=== PATIENT | male | born 1955 | race Caucasian/White ===

== ENCOUNTER 2024-04-29 18:39 | Inpatient (IN) ==
--- NOTE | 2024-04-29 18:58 | Emergency Department Note ---
Impression & Plan Acute cholecystitis Admission ED Provider Note HPI: History obtained from patient. The patient is a 68-year-old gentleman who presents the emergency department with a chief complaint of lower abdominal pain and vomiting. Patient states that the symptoms of an ongoing since about 1 AM. Patient states the pain is mostly in the right lower quadrant of his abdomen. Patient does admit to history of colon cancer and states that he has had a partial bowel resection in the past. Patient states he has not had any issues since then. On arrival here to the ED the patient is hypertensive but otherwise hemodynamically stable, he appears to be in no acute distress. Patient denies any chest pain or shortness of breath. ROS: - Per HPI Differential Diagnosis: Small bowel obstruction, viral gastroenteritis, diverticulitis, acute appendicitis, kidney stone, acute cholecystitis, amongst other potential pathologies. *Outpatient medications and allergy history reviewed. 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 Lab work shows a mild leukocytosis of 12.96, hemoglobin is normal, platelet count is normal, CMP shows a mild elevation in the patient's bilirubin level at 1.5, AST and ALT are normal, alk phos is mildly elevated at 121. Lipase is normal. Troponin is negative x 1. EKG per my interpretation does not show any evidence of any acute ischemic changes. CT imaging of the abdomen pelvis shows evidence of severe acute cholecystitis. Blood cultures were ordered and the patient was started on IV Zosyn. I discussed these lab work and imaging findings with on-call general surgery, Dr. Díaz, via tiger text. He requested that the patient be admitted to the medicine service, have an MRCP obtained, and to the plan at this time would be for the daytime general surgery team to evaluate the patient for further management and potential surgical intervention. At this point I discussed the patient's presentation with the on-call hospitalist, Dr. Hitchcock, and the patient was placed for admission in stable condition for further care. Patient was in agreement to this plan. Consultants/Discussions held with other healthcare providers: -General Surgery, Dr. Díaz -Hospitalist, Dr. Hitchcock Disposition discussion held by myself with: -Patient Diagnosis: 1. Acute cholecystitis 2. Leukocytosis, acute 3. Elevated bilirubin, acute Disposition: Admission Jatinder Borges DO Emergency Medicine Past Med/Surg History Problem List (Updated 04/30/24 @ 00:04 by Jatinder Borges DO) Acute cholecystitis (Acute) Social History Smoking Status: Never smoker Preferred Language: Croatian Feels Safe at Home: Yes Allergies Allergies Allergy/AdvReac Type Severity Reaction Status Date / Time No Known Allergies Allergy Unverified 04/29/24 22:38 Home Meds Home Medications Medication Instructions Recorded Confirmed No Known Home Medications 04/29/24 04/29/24 Results & Data (ED) Vital Signs Vital Signs - 24 hr 04/29/24 18:50 04/29/24 19:07 04/29/24 19:07 Temperature 36.8 C Temperature Source Temporal Artery Scan Pulse Rate 85 105 H Pulse Rate [Apical] 96 H Respiratory Rate 19 20 20 Respiratory Effort / Characteristics Non-Labored Spontaneous Non-Labored Spontaneous Respiratory Depth Normal Normal Respiratory Pattern Regular Blood Pressure 199/98 H Blood Pressure [Right Arm] 190/104 H Blood Pressure Mean 131 Blood Pressure Mean [Right Arm] 132 Pulse Oximetry 94 96 96 Oxygen Delivery Method Room Air Room Air Room Air Sepsis Recent Fever Within 48 Hours No Sepsis New/Unexplained Change in Mental Status N/A Sepsis Action Taken by Nursing No Action Required 04/29/24 19:07 04/29/24 21:00 04/29/24 23:00 Temperature Temperature Source Pulse Rate 95 H Pulse Rate [Apical] 107 H 110 H Respiratory Rate 20 20 Respiratory Effort / Characteristics Non-Labored Spontaneous Non-Labored Spontaneous Respiratory Depth Normal Normal Respiratory Pattern Regular Blood Pressure Blood Pressure [Right Arm] 170/92 H 163/95 H Blood Pressure Mean Blood Pressure Mean [Right Arm] 118 117 Pulse Oximetry 90 95 Oxygen Delivery Method Room Air Room Air Sepsis Recent Fever Within 48 Hours Sepsis New/Unexplained Change in Mental Status Sepsis Action Taken by Nursing 04/29/24 23:16 Temperature Temperature Source Pulse Rate 107 H Pulse Rate [Apical] Respiratory Rate Respiratory Effort / Characteristics Respiratory Depth Respiratory Pattern Blood Pressure Blood Pressure [Right Arm] Blood Pressure Mean Blood Pressure Mean [Right Arm] Pulse Oximetry Oxygen Delivery Method Sepsis Recent Fever Within 48 Hours Sepsis New/Unexplained Change in Mental Status Sepsis Action Taken by Nursing Laboratory Data 04/29/24 19:00 04/29/24 19:00 Lab Results 04/29/24 04/29/24 Range/Units 19:00 20:19 WBC 12.96 H (4.8-10.8) K/ul RBC 5.14 (4.70-6.10) M/uL Hgb 16.7 (14.0-18.0) g/dl Hct 46.8 (42.0-52.0) % MCV 91.1 (80.0-100.0) fL MCH 32.5 (25.0-34.0) pg MCHC 35.7 (32.0-36.0) g/dL RDW Std Deviation 42.9 (36.4-46.3) fL RDW Coeff of Ham 12.8 (11.5-14.5) % Plt Count 180 (130-400) K/uL MPV 9.3 L (9.4-12.4) fL Immature Gran % (Auto) 0.4 % Neut % (Auto) 86.5 % Lymph % (Auto) 5.4 % [place] % (Auto) 7.4 % Eos % (Auto) 0.1 % Baso % (Auto) 0.2 % Neut # (Auto) 11.21 H (1.40-6.50) K/uL Lymph # (Auto) 0.70 L (1.20-3.40) K/uL [place] # (Auto) 0.96 H (0.11-0.59) K/uL Eos # (Auto) 0.01 (0.00-0.50) K/uL Baso # (Auto) 0.03 (0.00-0.20) K/uL Immature Gran # (Auto) 0.05 (0.01-0.20) K/uL Sodium 136 (136-145) mmol/L Potassium 3.8 (3.5-5.1) mmol/L Chloride 95 L (98-107) mmol/L Carbon Dioxide 30 (21-32) mmol/L Anion Gap 11 (3-11) BUN 14 (6-23) mg/dl Creatinine 0.69 (0.6-1.4) mg/dl Est Cr Clr Drug Dosing 113.9 ml/min eGFR 100.80 BUN/Creatinine Ratio 20.3 H (10-20) Glucose 129 H (70-99(Fasting)) mg/dl Calcium 9.3 (8.6-10.3) mg/dl Total Bilirubin 1.5 H (0.2-1.0) mg/dl AST 23 (13-39) U/L ALT 27 (7-52) U/L Alkaline Phosphatase 121 H (34-104) U/L Troponin I High Sens 9.1 (0-20) pg/ml Total Protein 7.5 (6.0-8.3) gm/dl Albumin 4.6 (3.4-5.0) gm/dl Globulin 2.9 (2.5-4.0) gm/dl Albumin/Globulin Ratio 1.6 (0.9-2) Lipase 23 (11-82) U/L Urine Color Yellow Urine Appearance Clear (Clear) Urine pH 7.0 (4.5-7.5) Ur Specific [place] 1.030 (1.000-1.030) Urine Protein 1+ H (Negative) Urine Glucose (UA) Negative (Negative) Urine Ketones Negative (Negative) Urine Blood Negative (Negative) Urine Nitrite Negative (Negative) Urine Bilirubin Negative (Negative) Urine Urobilinogen Negative (Negative) Ur Leukocyte Esterase Negative (Negative) Urine WBC (Auto) 0-5 (0-5) /hpf Urine RBC (Auto) 0-2 (0-2) /hpf U Hyaline Cast (Auto) 0-2 (0-2) /lpf U Epithel Cells (Auto) 0-2 (0-2) /hpf Urine Bacteria (Auto) None Seen (None Seen) Administered Medications Discontinued Medications Sodium Chloride (Nss) 1,000 mls @ 999 mls/hr IV .Q1H1M ONE Stop: 04/29/24 19:57 Last Infusion: 04/29/24 20:31 Dose: Infused Documented By: Admin: 04/29/24 19:02 Dose: 999 mls/hr Documented By: BRANDIE Piperacillin Sod/Tazobactam Sod (Zosyn) 4.5 gm in 100 mls @ 200 mls/hr IV NOW ONE; Protocol Stop: 04/29/24 22:30 Last Infusion: 04/29/24 23:04 Dose: Infused Documented By: Admin: 04/29/24 22:32 Dose: 200 mls/hr Documented By: STEVEN Pantoprazole Sodium (Protonix) 40 mg in 10 mls @ 5 mls/min IV NOW ONE Stop: 04/29/24 23:10 Last Admin: 04/29/24 23:33 Dose: 5 mls/min Documented By: BRANDIE Ioversol (Optiray 320 100ml) 93 ml IV ONCE ONE Stop: 04/29/24 19:52 Last Admin: 04/29/24 19:51 Dose: 93 ml Documented By: DINORAH Morphine Sulfate (Morphine Sulfate 4 Mg/Ml 1 Ml Carp\Vial) 4 mg IV NOW STA Stop: 04/29/24 18:57 Last Admin: 04/29/24 19:03 Dose: 4 mg Documented By: BRANDIE Morphine Sulfate (Morphine Sulfate 4 Mg/Ml 1 Ml Carp\Vial) 4 mg IV NOW STA Stop: 04/29/24 21:01 Last Admin: 04/29/24 21:05 Dose: 4 mg Documented By: BRANDIE Morphine Sulfate (Morphine Sulfate 4 Mg/Ml 1 Ml Carp\Vial) 4 mg IV NOW STA Stop: 04/29/24 22:46 Last Admin: 04/29/24 22:49 Dose: 4 mg Documented By: STEVEN Ondansetron HCl (Ondansetron Inj 2 Mg/Ml 2 Ml Vial) 4 mg IV NOW STA Stop: 04/29/24 18:57 Last Admin: 04/29/24 19:02 Dose: 4 mg Documented By: BRANDIE Imaging Data Radiologist's Impression: Abdomen/Pelvis CT 04/29/24 18:56 CR Exam(s): CT ABDOMEN + PELVIS With Contrast IV Amt: 93ml optiray 320 EXAM: CT Abdomen and Pelvis With Intravenous Contrast CLINICAL HISTORY: Reason for exam: lower abd pain. TECHNIQUE: Axial computed tomography images of the abdomen and pelvis with intravenous contrast. CTDI is 25.22 mGy and DLP is 1192.92 mGy-cm. Automated exposure control was utilized for the study. A dose lowering technique was utilized adhering to the principles of ALARA. CONTRAST: Patient received 93ml optiray 320 of IV contrast COMPARISON: None. FINDINGS: Lung bases: Clear. Liver: Fatty. Gallbladder and bile ducts: Severe distended gallbladder, large, 3.5 cm stone in the gallbladder neck, moderate wall thickening/halo, nonspecific, probable acute cholecystitis. No ductal dilation. Pancreas: No ductal dilation, or acute pancreatitis. Spleen: Unremarkable. Adrenals: Unremarkable. Kidneys and ureters: Mild perinephric edema bilaterally. No pyelonephritis or hydronephrosis. Stomach and bowel: Moderate to severe fecal loading of a capacious right colon. No diverticulosis or diverticulitis. No obstruction. Appendix: No acute appendicitis. Intraperitoneal space: No free air or fluid. Bones/joints: Severe degenerative disc disease in the lumbar spine with multilevel vacuum disc and multilevel bilateral foraminal stenosis. No acute fracture. Soft tissues: Unremarkable. Vasculature: No aortic aneurysm. Lymph nodes: No enlarged lymph nodes. Bladder: No stones. Reproductive: Unremarkable as visualized. IMPRESSION: 1. Suspect severe, acute cholecystitis with cholelithiasis. 2. No ductal dilatation. Communications: Verify Receipt Electronically signed by: Winnie Valdovinos M.D. 04/29/24 21:58 PM Discharge Plan Visit Data Chief Complaint: Abdominal Pain Stated Complaint: ?STOMACH POISIONING,ABD PAIN,VOMITING ED Provider: Jatinder Borges Discharge Problem: Acute cholecystitis Forms Stand Alone Forms: [facility] [place] Prescriptions Prescriptions: No Action No Known Home Medications Referrals Referrals: PCP,NO [Primary Care Provider] -
[2024-04-29] MEDS: ONDANSETRON INJ 2 MG/ML 2 ML VIAL IV STA (19:02)
[2024-04-29] MEDS: SODIUM CHLORIDE 0.9% 1,000 ML IV ONE (19:02)
[2024-04-29] MEDS: MoRPHine SULFATE 4 MG/ML 1 ML CARP\\VIAL IV STA ×3 (19:03→22:49)
[2024-04-29 19:16] LABS: Basophils # (auto) 0.03 K/uL (0.00-0.20); Basophils % (auto) 0.2 %; Eosinophils # (auto) 0.01 K/uL (0.00-0.50); Eosinophils % (auto) 0.1 %; Hematocrit (blood only) 46.8 % (42.0-52.0); Hemoglobin 16.7 g/dl (14.0-18.0); Immature Granulocytes # (auto) 0.05 K/uL (0.01-0.20); Immature Granulocytes % (auto) 0.4 %; Lymphocytes % (auto) 5.4 %; Mean Corpuscular Hemoglobin 32.5 pg (25.0-34.0); Mean Corpuscular Hgb Conc 35.7 g/dL (32.0-36.0); Mean Corpuscular Volume 91.1 fL (80.0-100.0); Mean Platelet Volume 9.3 fL (9.4-12.4); Monocytes # (auto) 0.96 K/uL (0.11-0.59); Monocytes % (auto) 7.4 %; Neutrophils # (auto) 11.21 K/uL (1.40-6.50); Neutrophils % (auto) 86.5 %; Platelet Count 180 K/uL (130-400); RDW Coefficient of Variation 12.8 % (11.5-14.5); RDW Standard Deviation 42.9 fL (36.4-46.3); Red Blood Count 5.14 M/uL (4.70-6.10); White Blood Count 12.96 K/ul (4.8-10.8)
[2024-04-29 19:33] LABS: Albumin Globulin Ratio 1.6 (0.9-2); Albumin Level 4.6 gm/dl (3.4-5.0); BUN Creatinine Ratio 20.3 (10-20); Bilirubin,Total 1.5 mg/dl (0.2-1.0); Calcium 9.3 mg/dl (8.6-10.3); Creatinine Clr Calc Pharmacy 113.9 ml/min; Globulin 2.9 gm/dl (2.5-4.0); Potassium 3.8 mmol/L (3.5-5.1); Total Protein 7.5 gm/dl (6.0-8.3)
[2024-04-29 19:40] LABS: Troponin I High Sensitivity 9.1 pg/ml (0-20)
[2024-04-29] MEDS: OPTIRAY 320 100ml IV ONE (19:51)
[2024-04-29 20:41] LABS: Appearance Urine Clear (Clear); Bacteria Urine Automated None Seen (None Seen); Bilirubin Urine Negative (Negative); Blood Urine Negative (Negative); Cast Urine Automated 0-2 /lpf (0-2); Color Urine Yellow; Epithelial Cell Urine Auto 0-2 /hpf (0-2); Glucose Urine UA Negative (Negative); Ketones Urine Negative (Negative); Leukocyte Esterase Urine Negative (Negative); Nitrite Urine Negative (Negative); Protein Urine 1+ (Negative); RBC Urine Automated 0-2 /hpf (0-2); Urobilinogen Urine Negative (Negative); WBC Urine Automated 0-5 /hpf (0-5)
--- NOTE | 2024-04-29 21:59 | CT Scan Report ---
Exam(s): CT ABDOMEN + PELVIS With Contrast IV Amt: 93ml optiray 320 EXAM: CT Abdomen and Pelvis With Intravenous Contrast CLINICAL HISTORY: Reason for exam: lower abd pain. TECHNIQUE: Axial computed tomography images of the abdomen and pelvis with intravenous contrast. CTDI is 25.22 mGy and DLP is 1192.92 mGy-cm. Automated exposure control was utilized for the study. A dose lowering technique was utilized adhering to the principles of ALARA. CONTRAST: Patient received 93ml optiray 320 of IV contrast COMPARISON: None. FINDINGS: Lung bases: Clear. Liver: Fatty. Gallbladder and bile ducts: Severe distended gallbladder, large, 3.5 cm stone in the gallbladder neck, moderate wall thickening/halo, nonspecific, probable acute cholecystitis. No ductal dilation. Pancreas: No ductal dilation, or acute pancreatitis. Spleen: Unremarkable. Adrenals: Unremarkable. Kidneys and ureters: Mild perinephric edema bilaterally. No pyelonephritis or hydronephrosis. Stomach and bowel: Moderate to severe fecal loading of a capacious right colon. No diverticulosis or diverticulitis. No obstruction. Appendix: No acute appendicitis. Intraperitoneal space: No free air or fluid. Bones/joints: Severe degenerative disc disease in the lumbar spine with multilevel vacuum disc and multilevel bilateral foraminal stenosis. No acute fracture. Soft tissues: Unremarkable. Vasculature: No aortic aneurysm. Lymph nodes: No enlarged lymph nodes. Bladder: No stones. Reproductive: Unremarkable as visualized. IMPRESSION: 1. Suspect severe, acute cholecystitis with cholelithiasis. 2. No ductal dilatation. Communications: Verify Receipt Electronically signed by: Winnie Valdovinos M.D. 04/29/24 21:58 PM
[2024-04-29] MEDS: PIPERACILLIN/TAZOBACTAM 4.5 GM/100 ML BAG IV ONE (22:32)
--- NOTE | 2024-04-29 23:19 | History & Physical Report ---
Date of Service April 29, 2024 Assessment & Plan (1) Acute cholecystitis: (2) Cholelithiasis NOS: Plan Acute cholecystitis with cholelithiasis- Patient with 24 hours of severe symptoms of abdominal pain, nausea and vomiting CT of abdomen pelvis suspect severe acute cholecystitis There is a 3.5 cm stone in the gallbladder neck Total bilirubin 1.5 with normal transaminases Neutrophilic leukocytosis, with WBC 12.96 Surgical consult request medicine admit, MRCP, and medical clearance From the ED the patient received the following: Zofran 4 mg IV, NSS 1 L bolus, Zosyn 4.5 g IV x 1, Morphine sulfate 4 mg IV x 3 NPO Order MRCP Zofran 4 mg IV every 6 hours as needed Acetaminophen 1 g IV every 8 hours as needed for mild pain or fever Dilaudid 0.25 mg IV every 3 hours as needed for moderate pain Dilaudid 0.5 mg IV every 3 hours as needed for severe pain Pantoprazole 40 mg IV now and daily Zosyn 4.5 g IV every 8 hours LR at 80 mL/h x 1 L Hypertension- Admit to monitored bed Patient reports no history, but also does not see doctors on a regular basis Lopressor 2.5 mg IV every 4 hours as needed for systolic blood pressure greater than 160 Normal sinus rhythm at 96, with isolated PACs, left anterior fascicular block, no acute ST-T changes History of Present Illness Chief Complaint: The patient presents to the emergency department with the acute onset of severe abdominal pain, nausea and vomiting over the past 24 hours. He denies any recent travels or sick exposures. He denies any questionable food intakes. Primary Care Provider: NO PCP The patient is a 68-year-old male with a past medical history including colon cancer status post resection in [place] 2 years ago. He presents to the emergency department with the acute development and worsening of severe abdominal pain, nausea and vomiting over the past [address] scan of the abdomen and pelvis in the ED was positive for severe acute cholecystitis, with a 3.5 cm stone in the gallbladder neck. There was also moderate to severe fecal loading. Allergies Allergy/AdvReac Type Severity Reaction Status Date / Time No Known Allergies Allergy Unverified 04/29/24 22:38 Home Medications Medication Instructions Recorded Confirmed Type No Known Home Medications 04/29/24 04/29/24 History Past Med/Surg History Problem List (Updated 04/30/24 @ 00:50 by Jamri Hitchcock MD) Cholelithiasis NOS Acute cholecystitis (Acute) Medical History (Updated 04/30/24 @ 00:50 by Jamir Hitchcock MD) Cancer of colon with rectum Social History Smoking Status: Never smoker Preferred Language: Maori Feels Safe at Home: Yes Review of Systems Review of Systems: The patient denies chest pain, palpitations, shortness of breath, dyspnea on exertion, cough, lower extremity swelling, sore throat, fevers, chills, sweats, blood in urine or stool, dysuria, urinary frequency or urgency, lightheadedness, dizziness, headache, memory loss, loss of consciousness, rash, abnormal bruising or bleeding, imbalance, focal or generalized weakness, numbness or tingling in arms or legs, generalized arthralgias or myalgias, back or neck pain, or night sweats. The review of systems is otherwise negative other than for that already noted above, and at least 10 systems have been reviewed. Physical Exam Physical Exam: The patient is awake, alert and oriented 3, well developed and well nourished, normocephalic and atraumatic, lying in bed and in no acute distress. HEENT--PERRL, EOMI, mucous membranes and oropharynx mildly dry. Neck--supple. No JVD. No bruits. Thyroid normal, trachea midline, no adenopathy. Heart--normal S1 and S2. No murmurs, rubs or gallops. Lungs--clear bilaterally, no respiratory distress, no accessory muscle use. Abdomen--normal bowel sounds and soft. Nontender after administration of IV morphine. Nondistended Extremities--no cyanosis or clubbing. No edema. Dermatologic--normal skin turgor, normal color, no abnormal lymph nodes, no rash. Neurologic--cranial nerves II through XII grossly intact. Rheumatologic--normal range of motion. Psychiatric--normal affect. Results & Data Results & Data Vital Signs (Past 12 Hours) Vital Signs Temp Pulse Pulse Resp BP BP Pulse Ox 04/29/24 23:00 110 H 20 163/95 H 95 04/29/24 21:00 107 H 20 170/92 H 90 04/29/24 19:07 95 H 04/29/24 19:07 105 H 20 96 04/29/24 19:07 96 H 20 190/104 H 96 04/29/24 18:50 36.8 C 85 19 199/98 H 94 O2 Del Method 04/29/24 23:00 Room Air 04/29/24 21:00 Room Air 04/29/24 19:07 04/29/24 19:07 Room Air 04/29/24 19:07 Room Air 04/29/24 18:50 Room Air Laboratory Results Laboratory Results WBC 12.96 K/ul (4.8-10.8) H 04/29/24 19:00 RBC 5.14 M/uL (4.70-6.10) 04/29/24 19:00 Hgb 16.7 g/dl (14.0-18.0) 04/29/24 19:00 Hct 46.8 % (42.0-52.0) 04/29/24 19:00 MCV 91.1 fL (80.0-100.0) 04/29/24 19:00 MCH 32.5 pg (25.0-34.0) 04/29/24 19:00 MCHC 35.7 g/dL (32.0-36.0) 04/29/24 19:00 RDW Std Deviation 42.9 fL (36.4-46.3) 04/29/24 19:00 RDW Coeff of Ham 12.8 % (11.5-14.5) 04/29/24 19:00 Plt Count 180 K/uL (130-400) 04/29/24 19:00 MPV 9.3 fL (9.4-12.4) L 04/29/24 19:00 Immature Gran % (Auto) 0.4 % 04/29/24 19:00 Neut % (Auto) 86.5 % 04/29/24 19:00 Lymph % (Auto) 5.4 % 04/29/24 19:00 [place] % (Auto) 7.4 % 04/29/24 19:00 Eos % (Auto) 0.1 % 04/29/24 19:00 Baso % (Auto) 0.2 % 04/29/24 19:00 Neut # (Auto) 11.21 K/uL (1.40-6.50) H 04/29/24 19:00 Lymph # (Auto) 0.70 K/uL (1.20-3.40) L 04/29/24 19:00 [place] # (Auto) 0.96 K/uL (0.11-0.59) H 04/29/24 19:00 Eos # (Auto) 0.01 K/uL (0.00-0.50) 04/29/24 19:00 Baso # (Auto) 0.03 K/uL (0.00-0.20) 04/29/24 19:00 Immature Gran # (Auto) 0.05 K/uL (0.01-0.20) 04/29/24 19:00 Sodium 136 mmol/L (136-145) 04/29/24 19:00 Potassium 3.8 mmol/L (3.5-5.1) 04/29/24 19:00 Chloride 95 mmol/L (98-107) L 04/29/24 19:00 Carbon Dioxide 30 mmol/L (21-32) 04/29/24 19:00 Anion Gap 11 (3-11) 04/29/24 19:00 BUN 14 mg/dl (6-23) 04/29/24 19:00 Creatinine 0.69 mg/dl (0.6-1.4) 04/29/24 19:00 Est Cr Clr Drug Dosing 113.9 ml/min 04/29/24 19:00 eGFR 100.80 04/29/24 19:00 BUN/Creatinine Ratio 20.3 (10-20) H 04/29/24 19:00 Glucose 129 mg/dl (70-99(Fasting)) H 04/29/24 19:00 Calcium 9.3 mg/dl (8.6-10.3) 04/29/24 19:00 Total Bilirubin 1.5 mg/dl (0.2-1.0) H 04/29/24 19:00 AST 23 U/L (13-39) 04/29/24 19:00 ALT 27 U/L (7-52) 04/29/24 19:00 Alkaline Phosphatase 121 U/L (34-104) H 04/29/24 19:00 Troponin I High Sens 9.1 pg/ml (0-20) 04/29/24 19:00 Total Protein 7.5 gm/dl (6.0-8.3) 04/29/24 19:00 Albumin 4.6 gm/dl (3.4-5.0) 04/29/24 19:00 Globulin 2.9 gm/dl (2.5-4.0) 04/29/24 19:00 Albumin/Globulin Ratio 1.6 (0.9-2) 04/29/24 19:00 Lipase 23 U/L (11-82) 04/29/24 19:00 Urine Color Yellow 04/29/24 20:19 Urine Appearance Clear (Clear) 04/29/24 20:19 Urine pH 7.0 (4.5-7.5) 04/29/24 20:19 Ur Specific [place] 1.030 (1.000-1.030) 04/29/24 20:19 Urine Protein 1+ (Negative) H 04/29/24 20:19 Urine Glucose (UA) Negative (Negative) 04/29/24 20:19 Urine Ketones Negative (Negative) 04/29/24 20:19 Urine Blood Negative (Negative) 04/29/24 20:19 Urine Nitrite Negative (Negative) 04/29/24 20:19 Urine Bilirubin Negative (Negative) 04/29/24 20:19 Urine Urobilinogen Negative (Negative) 04/29/24 20:19 Ur Leukocyte Esterase Negative (Negative) 04/29/24 20:19 Urine WBC (Auto) 0-5 /hpf (0-5) 04/29/24 20:19 Urine RBC (Auto) 0-2 /hpf (0-2) 04/29/24 20:19 U Hyaline Cast (Auto) 0-2 /lpf (0-2) 04/29/24 20:19 U Epithel Cells (Auto) 0-2 /hpf (0-2) 04/29/24 20:19 Urine Bacteria (Auto) None Seen (None Seen) 04/29/24 20:19 Impressions Abdomen/Pelvis CT 04/29/24 18:56 CR Exam(s): CT ABDOMEN + PELVIS With Contrast IV Amt: 93ml optiray 320 EXAM: CT Abdomen and Pelvis With Intravenous Contrast CLINICAL HISTORY: Reason for exam: lower abd pain. TECHNIQUE: Axial computed tomography images of the abdomen and pelvis with intravenous contrast. CTDI is 25.22 mGy and DLP is 1192.92 mGy-cm. Automated exposure control was utilized for the study. A dose lowering technique was utilized adhering to the principles of ALARA. CONTRAST: Patient received 93ml optiray 320 of IV contrast COMPARISON: None. FINDINGS: Lung bases: Clear. Liver: Fatty. Gallbladder and bile ducts: Severe distended gallbladder, large, 3.5 cm stone in the gallbladder neck, moderate wall thickening/halo, nonspecific, probable acute cholecystitis. No ductal dilation. Pancreas: No ductal dilation, or acute pancreatitis. Spleen: Unremarkable. Adrenals: Unremarkable. Kidneys and ureters: Mild perinephric edema bilaterally. No pyelonephritis or hydronephrosis. Stomach and bowel: Moderate to severe fecal loading of a capacious right colon. No diverticulosis or diverticulitis. No obstruction. Appendix: No acute appendicitis. Intraperitoneal space: No free air or fluid. Bones/joints: Severe degenerative disc disease in the lumbar spine with multilevel vacuum disc and multilevel bilateral foraminal stenosis. No acute fracture. Soft tissues: Unremarkable. Vasculature: No aortic aneurysm. Lymph nodes: No enlarged lymph nodes. Bladder: No stones. Reproductive: Unremarkable as visualized. IMPRESSION: 1. Suspect severe, acute cholecystitis with cholelithiasis. 2. No ductal dilatation. Communications: Verify Receipt Electronically signed by: iWnnie Valdovinos M.D. 04/29/24 21:58 PM Code Status & VTE Plan Code Status Full code VTE Prophylaxis Plan VTE Prophylaxis will be ordered: Yes PG Care Time/CCT Total # of Minutes Spent Total Time Spent with Patient: Total time spent is greater than 50% in coordination of care (as documented) at patient's floor/unit and/or counseling patient: Coding Level of Care Code 70991 INT INP/OBS CARE 3/75MIN Diagnoses Acute cholecystitis K81.0 Cholelithiasis NOS K80.20
[2024-04-29] MEDS: PANTOprazole 40 MG/10 ML SYR IV ONE (23:33)
[2024-04-30] MEDS: HYDROmorphone INJ 0.5 MG/0.5 ML SYR IV PRN (00:09)
[2024-04-30] MEDS ORDERED: METOPROLOL TARTRATE 1 MG/ML VIAL IV PRN (00:55)
[2024-04-30] MEDS ORDERED: ONDANSETRON INJ 2 MG/ML 2 ML VIAL IV PRN ×2 (00:56→14:03)
[2024-04-30] MEDS: LACTATED RINGER'S 1,000 ML IV SCH ×2 (01:15→13:32)
--- NOTE | 2024-04-30 02:04 | Magnetic Resonance Report ---
EXAM: MR MRCP CLINICAL HISTORY: abdomen pain since this morning. vomiting. CT abd/pelvis 04/29/24. no other MRCP done here. images 1030 TECHNIQUE: Multiplanar multisequence magnetic resonance imaging of the abdomen was performed without intravenous contrast with MRCP protocol. COMPARISON: None. FINDINGS: Liver: Normal size and morphology. Few tiny T2 hyperintense lesions in both lobes of liver, likely benign hepatic cysts. Gallbladder: 32 mm calculus near the neck of gallbladder with distention of the lumen and significant pericholecystic inflammatory changes with minimal fluid, representing acute calculus cholecystitis Bile Ducts: The gallbladder calculus is slightly compressing the proximal common bile duct resulting in the prominence of upstream biliary system. No evidence of choledocholithiasis. Pancreas: Normal size and contour. Homogeneous signal intensity on T2-weighted images. No masses or cystic lesions. Pancreatic Duct: Pancreatic duct is normal in caliber. No evidence of ductal dilatation or filling defects. Spleen: Normal size and appearance. Homogeneous signal intensity. Kidneys: Normal size, shape, and position of both kidneys. Significant perinephric fat stranding, nonspecific/inflammatory. Adrenal Glands: Normal size and morphology bilaterally. No adrenal masses. Surrounding Structures: No evidence of free fluid or abnormal fluid collections in the abdomen. Normal appearance of the visualized bowel loops. IMPRESSION: 1. Acute calculus cholecystitis. 2. 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 Electronically signed by Lacy Holguin 04-30-2024 02:02 AM
[2024-04-30] MEDS: PIPERACILLIN/TAZOBACTAM 4.5 GM/100 ML BAG IV SCH (04:00)
[2024-04-30] MEDS: ACETAMINOPHEN 1,000 MG/100 ML VIAL IV PRN (04:08)
[2024-04-30 08:04] LABS: Basophils # (auto) 0.04 K/uL (0.00-0.20); Basophils % (auto) 0.3 %; Eosinophils # (auto) 0.01 K/uL (0.00-0.50); Eosinophils % (auto) 0.1 %; Hematocrit (blood only) 44.4 % (42.0-52.0); Hemoglobin 15.2 g/dl (14.0-18.0); Immature Granulocytes # (auto) 0.06 K/uL (0.01-0.20); Immature Granulocytes % (auto) 0.5 %; Lymphocytes # (auto) 1.09 K/uL (1.20-3.40); Lymphocytes % (auto) 8.5 %; Mean Corpuscular Hemoglobin 31.5 pg (25.0-34.0); Mean Corpuscular Hgb Conc 34.2 g/dL (32.0-36.0); Mean Corpuscular Volume 92.1 fL (80.0-100.0); Mean Platelet Volume 9.5 fL (9.4-12.4); Monocytes # (auto) 0.96 K/uL (0.11-0.59); Monocytes % (auto) 7.5 %; Neutrophils % (auto) 83.1 %; Platelet Count 155 K/uL (130-400); RDW Coefficient of Variation 13.2 % (11.5-14.5); RDW Standard Deviation 44.9 fL (36.4-46.3); Red Blood Count 4.82 M/uL (4.70-6.10); White Blood Count 12.76 K/ul (4.8-10.8)
[2024-04-30 08:30] LABS: Albumin Globulin Ratio 1.3 (0.9-2); Albumin Level 3.8 gm/dl (3.4-5.0); BUN Creatinine Ratio 21.6 (10-20); Bilirubin,Total 1.6 mg/dl (0.2-1.0); Calcium 8.7 mg/dl (8.6-10.3); Creatinine Clr Calc Pharmacy 113.2 ml/min; Total Protein 6.8 gm/dl (6.0-8.3)
[2024-04-30] MEDS: PANTOprazole 40 MG/10 ML SYR IV SCH (08:51)
[2024-04-30] MEDS: ACETAMINOPHEN 1,000 MG/100 ML VIAL IV STA ×2 (11:19→16:21)
--- NOTE | 2024-04-30 12:37 | Surgery Consultation ---
Date of Consultation April 30, 2024 Assessment & Plan (1) Cholelithiasis NOS: (2) Acute cholecystitis: MRCP suggesting some compression of the common bile duct by the gallbladder/cystic duct stone with proximal dilation likely the etiology of his elevated bilirubin. No evidence of choledocholithiasis. We discussed laparoscopic cholecystectomy and associated risks. We discussed potential bleeding, infection, injury to other organs, bile duct injury or leak, DVT, PE, [place], CVA etc. Following our discussion I answered all of his question. I also reached out to medicine and they had no issue with taking him to the operating room today. We will proceed today with laparoscopic cholecystectomy. He and his agree with the plan (3) Elevated LFTs: History of Present Illness Attending Physician: Jovani Patel DO History of Present Illness Is here today with acute cholecystitis. He began having severe upper abdominal pain and nausea yesterday afternoon. Allergies Allergy/AdvReac Type Severity Reaction Status Date / Time No Known Allergies Allergy Unverified 04/29/24 22:38 Home Medications Medication Instructions Recorded Confirmed Type No Known Home Medications 04/29/24 04/29/24 History Patient History Medical History (Updated 04/30/24 @ 12:36 by Alcides Solorzano DO) Cancer of colon with rectum Social History Smoking Status: Former smoker Tobacco Type: Cigarettes Smoking End Date: 1994; Second Hand Exposure: No; Tobacco Cessation Education Requested by Patient: No Hx Alcohol Use: Yes Alcohol type: hard liquor Hx Substance Use: No Preferred Language: Ethiopian Communication Ability: Effective Bladder Changer Required: No Beliefs That Will Affect Care: None Current Living Situation: Significant Other Other Information That Helps Us Care for You: No Feels Safe at Home: Yes Safety Concerns: Feels Safe At This Time Assistive Devices: Denture - Upper and Denture - Lower Review of Systems Review of Systems: All systems reviewed & are unremarkable except as noted in HPI & below Physical Exam Constitutional: WD/WN, vitals as above no acute distress and not ill appearing Eyes: PERRL, conjunctivae normal, anicteric sclerae EOM intact bilaterally ENMT: external ear and nose normal, oropharynx normal Ears: no hearing impairment Neck: trachea midline, no thyromegaly Respiratory: normal respiratory effort; no respiratory distress and does not use accessory muscles Cardiovascular: Sinus tachycardia. Gastrointestinal (Abdomen): Soft. Positive epigastric and right upper quadrant tenderness. Positive guarding. Skin: no rashes, warm and dry Psychiatric: Orientation: alert, oriented x 3 and cooperative Results & Data Vital Signs (Past 12 Hours) Vital Signs Temp Pulse Pulse Resp BP Pulse Ox Pulse Ox 04/30/24 11:57 106 H 04/30/24 11:10 126 H 04/30/24 10:55 38 C H 111 H 15 169/89 H 93 04/30/24 07:20 36.9 C 92 H 19 163/82 H 96 04/30/24 07:00 113 H 04/30/24 04:11 37.1 C 101 H 18 167/84 H 94 04/30/24 01:09 37.3 C 115 H 18 166/96 H 97 04/30/24 00:56 97 04/30/24 00:28 04/30/24 00:27 109 H 20 156/96 H 94 O2 Del Method O2 Del Method O2 Flow Rate 04/30/24 11:57 04/30/24 11:10 04/30/24 10:55 Room Air 04/30/24 07:20 Room Air 04/30/24 07:00 04/30/24 04:11 Room Air 04/30/24 01:09 Room Air 04/30/24 00:56 Room Air 04/30/24 00:28 Room Air 04/30/24 00:27 Nasal Cannula 2 PG Care Time/CCT Total # of Minutes Spent Total Time Spent with Patient: Total time spent is greater than 50% in coordination of care (as documented) at patient's floor/unit and/or counseling patient: Coding Level of Care Code 48042 INT INP/OBS CARE 2/55MIN Diagnoses Calculus of gallbladder with acute cholecystitis without obstruction K80.00 Cholelithiasis location: gallbladder Cholecystitis presence: with cholecystitis Cholecystitis acuity: acute Biliary obstruction: without biliary obstruction Acute cholecystitis K81.0 Elevated LFTs R79.89 (1) Cholelithiasis NOS Cholelithiasis location: gallbladder Cholecystitis presence: with cholecystitis Cholecystitis acuity: acute Biliary obstruction: without biliary obstruction Qualified Code(s): K80.00 - Calculus of gallbladder with acute cholecystitis without obstruction
[2024-04-30] MEDS ORDERED: ROCURONIUM BROMIDE 10 MG/ML 5 ML VIAL IV ONE (13:11)
[2024-04-30] MEDS ORDERED: MIDAZOLAM HCL 1 MG/ML 2ML VIAL ONE (13:11)
[2024-04-30] MEDS ORDERED: ONDANSETRON INJ 2 MG/ML 2 ML VIAL ONE (13:11)
[2024-04-30] MEDS ORDERED: PROPOFOL IV EMULSION 10 MG/ML 20 ML VIAL IV ONE (13:11)
[2024-04-30] MEDS ORDERED: fentaNYL citrate PF 100 MCG/2 ML VIAL ONE ×2 (13:11→15:10)
[2024-04-30] MEDS ORDERED: LIDOCAINE 2% 2 ML VIAL/AMP(20MG/ML) INFIL ONE (13:11)
--- NOTE | 2024-04-30 13:55 | Electrocardiogram Report ---
Test Reason : Blood Pressure : */* mmHG Vent. Rate : 96 BPM Atrial Rate : 96 BPM P-R Int : 190 ms QRS Dur : 88 ms QT Int : 364 ms P-R-T Axes : 53 -57 28 degrees QTcB Int : 459 ms Sinus rhythm with Premature atrial complexes Left anterior fascicular block Poor R wave progression, consider anterior AK vs. lead placement vs. LVH Abnormal ECG No previous ECGs available Confirmed by Deandre Fowelr ([id number]) on 04/30/2024 1:54:58 PM Referred By: NO PCP Confirmed By: Deandre Fowler
--- NOTE | 2024-04-30 14:02 | Anesthesiology Consultation ---
Date of Service April 30, 2024 Assessment & Plan Chart Review Chart Review: Acceptable Risk for Surgery and Patient NOT seen in Pre Admission Testing Consults Requested none ASA ASA2 Proposed Anesthesia Anesthesia Type: General Risk / Benefits Reviewed With: PT / POA / Parent / Guardian, Accepts Plan and Informed Consent Obtained History Surgery Operation Date: 04/30/24 11:25 Proposed Procedures p Laparoscopic Cholecystectomy - Alcides Solorzano, DO Height/Weight Height: 5 ft 8 in Weight: 106.8 kg Allergies Allergy/AdvReac Type Severity Reaction Status Date / Time No Known Allergies Allergy Unverified 04/29/24 22:38 Medications Home Medications Medication Instructions Recorded Confirmed Last Taken No Known Home Medications 04/29/24 04/29/24 Unknown Active Medications Generic Name Dose Route Start Last Admin Trade Name Freq PRN Reason Stop Dose Admin Hydromorphone HCl 0.5 mg 04/29/24 23:09 04/30/24 08:49 Hydromorphone Inj 0.5 Mg/0.5 Ml Syr IV 05/13/24 23:08 0.5 mg Q3H PRN Administration Severe Pain (Scale 7, 8, 9,10) Acetaminophen 1,000 mg in 100 mls @ 400 mls/hr 04/29/24 23:09 04/30/24 05:07 Ofirmev IV 05/02/24 23:08 Infused Q8H PRN Infusion Pain or Fever Pantoprazole Sodium 40 mg in 10 mls @ 5 mls/min 04/30/24 09:00 04/30/24 08:51 Protonix IV 05/30/24 08:59 5 mls/min DAILY IRIS Administration Piperacillin Sod/Tazobactam Sod 4.5 gm in 100 mls @ 25 mls/hr 04/30/24 04:00 04/30/24 11:22 Zosyn IV 05/10/24 03:59 25 mls/hr Q8H IRIS Administration Protocol Lactated Ringer's 1,000 mls @ 15 mls/hr 04/30/24 13:30 04/30/24 13:32 Lr IV 05/01/24 13:29 0 mls/hr .Q24H IRIS Infusion KVO NPO Date Last Intake of Fluids: 04/29/24 Time Last Intake of Fluids: 18:00 Date Last Intake of Solids: 04/28/24 Time Last Intake of Solids: 17:00 Past Medical History Medical History Cancer of colon with rectum Exercise / Class Metabolic Activity II 4-5 Yardwork/Stairs/Walk up hill Past Anesthesia History No Hx of Anesthesia Complications and No Family Hx of Anesthesia Complications History of PONV No Hx of PONV and No Hx of Motion Sickness Social History Smoking Status: Former smoker Smoking End Date: 1994 Hx Alcohol Use: Yes Alcohol type: hard liquor alcohol intake frequency: 0-2 drinks per day Hx Substance Use: No substance use type: does not use Review of Systems ROS Unobtainable: All systems reviewed & are unremarkable except as noted in HPI & below Physical Exam Vital Signs Last Vital Signs Temp 37.1 C 04/30/24 12:55 Pulse 104 H 04/30/24 12:55 Resp 20 04/30/24 12:55 BP 133/90 04/30/24 12:55 Pulse Ox 94 04/30/24 12:55 O2 Del Method Room Air 04/30/24 12:55 O2 Flow Rate 2 04/30/24 00:27 ENMT Mouth: no TMJ abnormality Thyromental Distance: > or= 3.5 Finger Breadths Mallampati Class: II Neck normal visual inspection and trachea midline; neck extension not limited Respiratory normal respiratory effort Auscultation: lungs clear to auscultation bilaterally Cardiovascular Rate/Rhythm: regular rate and regular rhythm Heart Sounds: no murmur Musculoskeletal Spine: normal cervical ROM Extremities: full ROM of extremities Neurologic moves all extremities Psychiatric Orientation: alert and oriented x 3 Testing Laboratory Results 04/30/24 07:48 04/30/24 07:48 Urine Color Yellow 04/29/24 20:19 Urine Appearance Clear (Clear) 04/29/24 20:19 Urine pH 7.0 (4.5-7.5) 04/29/24 20:19 Ur Specific [place] 1.030 (1.000-1.030) 04/29/24 20:19 Urine Protein 1+ (Negative) H 04/29/24 20:19 Urine Glucose (UA) Negative (Negative) 04/29/24 20:19 Urine Ketones Negative (Negative) 04/29/24 20:19 Urine Nitrite Negative (Negative) 04/29/24 20:19 Ur Leukocyte Esterase Negative (Negative) 04/29/24 20:19 Urine WBC (Auto) 0-5 /hpf (0-5) 04/29/24 20:19 Urine RBC (Auto) 0-2 /hpf (0-2) 04/29/24 20:19 U Hyaline Cast (Auto) 0-2 /lpf (0-2) 04/29/24 20:19 U Epithel Cells (Auto) 0-2 /hpf (0-2) 04/29/24 20:19 Urine Bacteria (Auto) None Seen (None Seen) 04/29/24 20:19 Electrocardiogram Date: 04/29/24 Findings: + NSR @ (PACs)
[2024-04-30] MEDS ORDERED: ATROPINE SULFATE 0.1 MG/ML 10ML SYR IV PRN (14:03)
[2024-04-30] MEDS ORDERED: ePHEDrine sulfate 50 MG/ML AMP IV PRN (14:03)
--- NOTE | 2024-04-30 14:29 | Hospitalist Progress Note ---
Date of Service April 30, 2024 Assessment & Plan (1) Acute cholecystitis: Plan: - Patient presented to ED with symptoms of right lower abdominal pain and vomiting - CT and MRCP show 3.2-3.5cm calculus near neck of the gallbladder with severe distention, inflammatory changes, and minimal fluid - Lab values: Leukocytosis, WBC - 12.76 BUN/Cret - 21.6 Elevated Bili - 1.6 Elevated ALP - 120 Indicative of cholestasis likely due to calculus pushing down on bile duct - Blood cultures have been ordered for sensitivities - Gen Surg has been consulted - patient will be going forward with laproscopic cholecystectomy - Continue Zosyn - Continue LR (2) Cholelithiasis NOS: Plan: - as per plan above (3) Hypertension: Plan: - Patient presented to ED with BP of 199/98 - Currently at 163/82, MAP: 109 - EKG showed no signs of ischemic changes, normal sinus rhythm at 96, with isolated PACs, left anterior fascicular block, no acute ST-T changes - Continue 2.5mg lopressor Admission and Anticipated Discharge Date Admission Date: April 29, 2024 Supervising Physician Co-Signing Physician Notes I personally examined the patient and verified all medellin points of history and exam, discussed case, and agree with decision making with Dr Jung and Garrett Burch MS2 feels lousy but overall stable. For surgery later this afternoon. Surgical input greatly appreciated. Vitals noted, in general he is awake and alert pleasant no distress. HEENT normocephalic atraumatic mucous membranes moist. Breathing unlabored no accessory muscle use good effort. Skin without rashes pallor or icterus. Neuro without focal deficits. Cholecystitis with sepsis present on admissioncontinue antibiotics and supportive care. For surgery this afternoon. DVT proph - SCDs Gregory Connor is a 68M w/ PMH of colon cancer s/p partial resection presented to the ED 04/29 for right lower quadrant abdominal pain and vomiting. His symptoms started at 1am at pain of 5 and progressed through the day to a pain of 7-8 by 6pm. Originally thought it was food poisoning from Thanksgiving meal on Tuesday. He tried acetaminophen at home with no relief and vomited every time he tried drank water (6-7 times). He endorses that his pain started in the right lower quadrant, but would spread to rest of his abdominal region if he moved or twisted. He also mentioned that the pain would occasionally be sharp and radiate down his leg and back. He says he has not ate anything since the pain first started and has had no bowel movements. He endorses having intermittent fevers yesterday. Nikolas also came in to the ED hypertensive at 199/98. He endorses never being on home BP medications and does not regularly see a doctor. He does mention that he occasionally has sharp chest pain during work that attributes to stress, but does not experience any SOB. Today, he mentions his abdominal pain is better, but still present, and he feels less nauseous today. He does not endorse any chest pain, SOB, or lightheadedness today, but does mention headaches. Review of Systems Constitutional: + headache Gastrointestinal: + abdominal pain, + bloating, + nausea, + vomiting and + constipation Physical Exam Constitutional: WD/WN, vitals as above alert and conversive Respiratory: normal respiratory effort, lungs clear to auscultation Cardiovascular: RRR, no murmur, no edema Gastrointestinal (Abdomen): Inspection/Auscultation: + abdomen distended and normal bowel sounds guarding and rigidity on mid right quadrant, tenderness of right side, no hepatospenomegaly, no Alcantar's sign Results & Data Results & Data Vital Signs (Past 12 Hours) Vital Signs Temp Pulse Pulse Resp BP Pulse Ox Pulse Ox 04/30/24 07:20 36.9 C 92 H 19 163/82 H 96 04/30/24 04:11 37.1 C 101 H 18 167/84 H 94 04/30/24 01:09 37.3 C 115 H 18 166/96 H 97 04/30/24 00:56 97 04/30/24 00:28 04/30/24 00:27 109 H 20 156/96 H 94 04/29/24 23:16 107 H 04/29/24 23:00 110 H 20 163/95 H 95 04/29/24 21:00 107 H 20 170/92 H 90 O2 Del Method O2 Del Method O2 Flow Rate 04/30/24 07:20 Room Air 04/30/24 04:11 Room Air 04/30/24 01:09 Room Air 04/30/24 00:56 Room Air 04/30/24 00:28 Room Air 04/30/24 00:27 Nasal Cannula 2 04/29/24 23:16 04/29/24 23:00 Room Air 04/29/24 21:00 Room Air Laboratory Results Abnormal lab results 04/29/24 04/29/24 04/30/24 Range/Units 19:00 20:19 07:48 WBC 12.96 H 12.76 H (4.8-10.8) K/ul MPV 9.3 L (9.4-12.4) fL Neut # (Auto) 11.21 H 10.60 H (1.40-6.50) K/uL Lymph # (Auto) 0.70 L 1.09 L (1.20-3.40) K/uL [place] # (Auto) 0.96 H 0.96 H (0.11-0.59) K/uL Chloride 95 L (98-107) mmol/L BUN/Creatinine Ratio 20.3 H 21.6 H (10-20) Glucose 129 H 115 H (70-99(Fasting)) mg/dl Total Bilirubin 1.5 H 1.6 H (0.2-1.0) mg/dl Alkaline Phosphatase 121 H 120 H (34-104) U/L Urine Protein 1+ H (Negative) Diagnostic Findings Abdomen/Pelvis CT 04/29/24 18:56 FINDINGS: Lung bases: Clear. Liver: Fatty. Gallbladder and bile ducts: Severe distended gallbladder, large, 3.5 cm stone in the gallbladder neck, moderate wall thickening/halo, nonspecific, probable acute cholecystitis. No ductal dilation. Pancreas: No ductal dilation, or acute pancreatitis. Spleen: Unremarkable. Adrenals: Unremarkable. Kidneys and ureters: Mild perinephric edema bilaterally. No pyelonephritis or hydronephrosis. Stomach and bowel: Moderate to severe fecal loading of a capacious right colon. No diverticulosis or diverticulitis. No obstruction. Appendix: No acute appendicitis. Intraperitoneal space: No free air or fluid. Bones/joints: Severe degenerative disc disease in the lumbar spine with multilevel vacuum disc and multilevel bilateral foraminal stenosis. No acute fracture. Soft tissues: Unremarkable. Vasculature: No aortic aneurysm. Lymph nodes: No enlarged lymph nodes. Bladder: No stones. Reproductive: Unremarkable as visualized. IMPRESSION: 1. Suspect severe, acute cholecystitis with cholelithiasis. 2. No ductal dilatation. Communications: Verify Receipt Electronically signed by: Winnie Bonifacio, M.D. 04/29/24 21:58 PM Cholangiopancreatography MRI 04/29/24 23:16 FINDINGS: Liver: Normal size and morphology. Few tiny T2 hyperintense lesions in both lobes of liver, likely benign hepatic cysts. Gallbladder: 32 mm calculus near the neck of gallbladder with distention of the lumen and significant pericholecystic inflammatory changes with minimal fluid, representing acute calculus cholecystitis Bile Ducts: The gallbladder calculus is slightly compressing the proximal common bile duct resulting in the prominence of upstream biliary system. No evidence of choledocholithiasis. Pancreas: Normal size and contour. Homogeneous signal intensity on T2-weighted images. No masses or cystic lesions. Pancreatic Duct: Pancreatic duct is normal in caliber. No evidence of ductal dilatation or filling defects. Spleen: Normal size and appearance. Homogeneous signal intensity. Kidneys: Normal size, shape, and position of both kidneys. Significant perinephric fat stranding, nonspecific/inflammatory. Adrenal Glands: Normal size and morphology bilaterally. No adrenal masses. Surrounding Structures: No evidence of free fluid or abnormal fluid collections in the abdomen. Normal appearance of the visualized bowel loops. IMPRESSION: 1. Acute calculus cholecystitis. 2. 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 Electronically signed by Lacy Holguin 04-30-2024 02:02 AM Medications Administered Current Medications Hydromorphone HCl (Hydromorphone Inj 0.5 Mg/0.5 Ml Syr) 0.25 mg IV Q3H PRN PRN Reason: Moderate Pain (Scale 4, 5, 6) Stop: 05/13/24 23:08 Hydromorphone HCl (Hydromorphone Inj 0.5 Mg/0.5 Ml Syr) 0.5 mg IV Q3H PRN PRN Reason: Severe Pain (Scale 7, 8, 9,10) Stop: 05/13/24 23:08 Last Admin: 04/30/24 08:49 Dose: 0.5 mg Acetaminophen (Ofirmev) 1,000 mg in 100 mls @ 400 mls/hr IV Q8H PRN PRN Reason: Pain or Fever Stop: 05/02/24 23:08 Last Infusion: 04/30/24 05:07 Dose: Infused Pantoprazole Sodium (Protonix) 40 mg in 10 mls @ 5 mls/min IV DAILY IRIS Stop: 05/30/24 08:59 Last Admin: 04/30/24 08:51 Dose: 5 mls/min Piperacillin Sod/Tazobactam Sod (Zosyn) 4.5 gm in 100 mls @ 25 mls/hr IV Q8H IRIS; Protocol Stop: 05/10/24 03:59 Last Infusion: 04/30/24 07:42 Dose: Infused Lactated Ringer's (Lr) 1,000 mls @ 80 mls/hr IV .[id number] IRIS Stop: 04/30/24 13:25 Last Admin: 04/30/24 01:15 Dose: 80 mls/hr Metoprolol Tartrate (Metoprolol Tartrate 1 Mg/Ml Vial) 2.5 mg IV Q4 PRN PRN Reason: Hypertension Stop: 05/30/24 03:59 Ondansetron HCl (Ondansetron Inj 2 Mg/Ml 2 Ml Vial) 4 mg IV Q6H PRN PRN Reason: Nausea Stop: 05/30/24 00:55 ECG Additional Comments: EKG showed no signs of ischemic changes, normal sinus rhythm at 96, with isolated PACs, left anterior fascicular block, no acute ST-T changes (2) Cholelithiasis NOS Biliary obstruction: without biliary obstruction Cholecystitis acuity: acute Cholecystitis presence: with cholecystitis Cholelithiasis location: gallbladder Qualified Code(s): K80.00 - Calculus of gallbladder with acute cholecystitis without obstruction (3) Hypertension Hypertension type: unspecified Qualified Code(s): I10 - Essential (primary) hypertension
[2024-04-30] MEDS ORDERED: PHENYLEPHRINE 100MCG/ML 5ML SYR ONE (14:41)
[2024-04-30] MEDS ORDERED: SUGAMMADEX SODIUM 200 MG/2 ML VIAL IV ONE (15:31)
[2024-04-30] MEDS: BUPIVACAINE/EPINEPHRINE 0.5% MPF 1:200,000 30 ML VIAL ONE (15:31)
--- NOTE | 2024-04-30 15:40 | Operative Report ---
[facility] Post Operative Report Pre & Post Diagnosis Operation Date: 04/30/24 11:25 Pre-Op Diagnosis: Cholelithiasis, Acute cholecystitis Post-Op Diagnosis: Cholelithiasis, Acute cholecystitis, Incisional Hernia I identified the patient and participated in the time-out.: Yes Procedure Operation Date: 04/30/24 11:25 Actual Procedures p Laparoscopic Cholecystectomy, Repair of Incisional Hernia(Not Applicable) ; difficulty modifier- Alcides Solorazno DO Surgeon Alcides Solorzano DO Absorption Operator nia Hannon Estimated Blood Loss 100 Findings Consistent with Post-Op Diagnosis Specimens gallbladder Description of Procedure After informed consent was obtained the patient was taken to the operating room and placed in supine position. After successful intubation the abdomen was shaved and sterilely prepped and draped in usual fashion. There was a rather obvious periumbilical incisional hernia from his prior incision. I began by m aking an incision vertically right over top of the visible hernia. I carried this down through the soft tissue using cautery. I slightly extended the fascial defect and excised the hernia sac. A finger sweep was then performed. A 12 mm Alvarado trocar was placed and the abdomen was insufflated to 18 mmHg. The laparoscope was inserted and the abdomen examined in 360 degrees. A subxiphoid 12 mm port and 2 right upper quadrant 5 mm ports were placed under direct vision. The patient was placed in a reverse Trendelenburg position and slightly airplane to the left. I pulled the omentum off of the gallbladder revealing an extremely infected and inflamed gallbladder. I began by using a needle to decompress the gallbladder. I withdrew about 40 cc of black thick fluid. We then grasped the gallbladder and elevated it superiorly and laterally. Because of the inflammation the dissection was difficult. Eventually I was able to use primarily blunt dissection to come down over the neck of the gallbladder. There was a very large stone in the neck of the gallbladder as seen on imaging. I was able to identify the cystic duct and skeletonized it. It was clipped twice proximally and once distally and transected using a laparoscopic scissor. There was a small posterior arterial branch of the cystic artery that was skeletonized clipped and divided followed by a main arterial branch that was skeletonized clipped and divided. The gallbladder was then removed from the gallbladder fossa using cautery. A small hole was made in the gallbladder during this process. We immediately suctioned the bile and irrigated until all irrigant was clear. Eventually I was able to remove the gallbladder from the gallbladder fossa. It was placed into an Endo Catch bag. Any small bleeding points on the gallbladder fossa were controlled using electrocautery. At the end of the procedure there was adequate hemostasis and no evidence of any bile leaks. Thorough irrigation was performed in the pelvis as well as the right upper quadrant. A 10 flat Fabian-Choi drain was placed into the right upper quadrant and brought out through one of the right upper quadrant trocar sites. It was secured to the skin using 0 Vicryl. All the trocars were then removed. I had to extend the fascial defect superiorly in order to get the gallbladder and stones out. Once this was accomplished I then closed the fascial defect/hernia defect using 0 Vicryl in simple interrupted fashion . All the wounds were thoroughly irrigated. Skin ruchi were used to close the incisions covered by gauze and tape. The patient was awakened extubated and transferred to recovery in stable condition. My nurse practitioner was present for the entire case was instrumental in gaining access, assisting with running the camera, retraction of the gallbladder, wound closure and dressing placement. I attest to the content of the Intraoperative Record and any orders documented therein. Any exceptions are noted below.
[2024-04-30] MEDS: fentaNYL citrate PF 100 MCG/2 ML VIAL IV PRN (15:52)
[2024-04-30] MEDS: KETOROLAC TROMETHAMINE 15 MG/ML VIAL IV ONE (16:30)
--- NOTE | 2024-04-30 16:33 | Anesthesiology Progress Note ---
Date of Service April 30, 2024 Anesthesia Post Procedure Vital Signs Vital Signs: Temp Pulse Pulse Pulse Resp BP BP 04/30/24 16:05 96 H 24 155/86 H 04/30/24 15:55 94 H 24 151/80 H 04/30/24 15:45 37.2 C 94 H 24 135/74 04/30/24 12:55 37.1 C 104 H 20 04/30/24 12:30 37.1 C 04/30/24 11:57 106 H 04/30/24 11:10 126 H 04/30/24 10:55 38 C H 111 H 15 04/30/24 07:20 36.9 C 92 H 19 04/30/24 07:00 113 H 04/30/24 04:11 37.1 C 101 H 18 04/30/24 01:09 37.3 C 115 H 18 04/30/24 00:56 04/30/24 00:28 04/30/24 00:27 109 H 20 04/29/24 23:16 107 H 04/29/24 23:00 110 H 20 04/29/24 21:00 107 H 20 04/29/24 19:07 95 H 04/29/24 19:07 105 H 20 04/29/24 19:07 96 H 20 04/29/24 18:50 36.8 C 85 19 199/98 H BP Pulse Ox Pulse Ox O2 Del Method O2 Del Method O2 Flow Rate 04/30/24 16:05 96 Oxymask 5 04/30/24 15:55 97 Oxymask 5 04/30/24 15:45 96 Oxymask 10 04/30/24 12:55 133/90 94 Room Air 04/30/24 12:30 04/30/24 11:57 04/30/24 11:10 04/30/24 10:55 169/89 H 93 Room Air 04/30/24 07:20 163/82 H 96 Room Air 04/30/24 07:00 04/30/24 04:11 167/84 H 94 Room Air 04/30/24 01:09 166/96 H 97 Room Air 04/30/24 00:56 97 Room Air 04/30/24 00:28 Room Air 04/30/24 00:27 156/96 H 94 Nasal Cannula 2 04/29/24 23:16 04/29/24 23:00 163/95 H 95 Room Air 04/29/24 21:00 170/92 H 90 Room Air 04/29/24 19:07 04/29/24 19:07 96 Room Air 04/29/24 19:07 190/104 H 96 Room Air 04/29/24 18:50 94 Room Air Pain Intensity Abdomen: Pain Intensity: 8 Transfer of Care Handoff Completed per policy Notes Mental Status: alert / awake / arousable Patient Amnestic to Procedure: Yes Nausea / Vomiting: adequately controlled Pain: adequately controlled Airway Patency, RR, SpO2: stable & adequate BP & HR: stable & adequate Hydration State: stable & adequate Anesthetic Complications: no major complications apparent and Pt Satisfied with anesthetic care
[2024-04-30] MEDS ORDERED: oxyCODONE HCL IR 5 MG TAB (IMMEDIATE RELEASE) PO PRN (17:02)
[2024-04-30] MEDS: KETOROLAC 30 MG/ML VIAL ONE (17:06)
[2024-04-30] MEDS: oxyCODONE HCL IR 5 MG TAB (IMMEDIATE RELEASE) PO PRN ×2 (17:38→19:38)
--- NOTE | 2024-04-30 18:47 | Billing Data ---
Date of Service April 30, 2024 Coding Level of Care Code 84683 SUB INP/OBS CARE
[2024-05-01] MEDS: HYDROmorphone INJ 0.5 MG/0.5 ML SYR IV PRN ×2 (06:21→14:17)
--- NOTE | 2024-05-01 06:39 | Hospitalist Progress Note ---
Date of Service May 01, 2024 Assessment & Plan (1) Acute cholecystitis: Plan: - Patient presented to ED with symptoms of right lower abdominal pain and vomiting - CT and MRCP show 3.2-3.5cm calculus near neck of the gallbladder - s/p cholecystectomy 04/30, surgeon saw extremely infected and inflamed gallbladder - Lab values: Leukocytosis downtrending, WBC - 12.76 -> 11.87 Elevated Bili downtrending - 1.6 -> 1.4 ALP downtrending - 120 -> 102 Elevated transaminases, AST - 95, ALT - 88, likely due to inflammation - Blood cultures have been ordered for sensitivities - Continue Zosyn (2) Cholelithiasis NOS: Plan: - as per plan above (3) Hypertension: Plan: - Patient presented to ED with BP of 199/98 - Currently at 119/73, MAP: 88 - EKG showed no signs of ischemic changes, normal sinus rhythm at 96, with isolated PACs, left anterior fascicular block, no acute ST-T changes - Can take off of telemetry (4) VERONICA (acute kidney injury): Plan: - BUN/Cret uptrending - 21.6 -> 25.8 - Likely due to volume depletion from N/V and sepsis presentation - Inc. LR to 1,000mg @ 125 mls/hr IV [id number] Admission and Anticipated Discharge Date Admission Date: April 29, 2024 Supervising Physician Co-Signing Physician Notes I personally examined the patient and verified all medellin points of history and exam, discussed case, and agree with decision making with Dr Jung and Garrett Burch MS2 Some degree of pain, but medications help enoughjust he notices when the meds start to wear off, but also he does not feel like he has been in uncontrollable pain. Vitals noted, in general he is awake and alert pleasant no distress. HEENT normocephalic atraumatic mucous membranes moist. Breathing unlabored no accessory muscle use good effort. Skin without rashes pallor or icterus. Neuro without focal deficits. Abdomen moderately distended moderately tender no guarding rebound or rigidity Cholecystitis with sepsis present on admission now postop day 1continue IV antibiotics, continue pain control, restarted IV fluids, continue to follow. Safe for medical. Surgery assistance greatly appreciated. DVT proph - SCDs Subjective Nikolas is s/p cholecystectomy and periumbilical incisional hernia repair from yesterday afternoon. Today he reports that he felt feverish last night, but otherwise has not felt any systemic symptoms. He says he still feels pain on his right abdominal region similar to yesterday. He does not endorse any symptoms of numbness or tingling in his legs, burning around this surgical incision sites, swelling, or bruising. He has been drinking fluids, but has not urinated much and has had no bowel movements. He mentions he has been coughing more since yesterday as well and was on nasal cannula until this morning, but does not endorse SOB. He mentions no chest pain. Review of Systems Review of Systems: All systems reviewed & are unremarkable except as noted in Subjective Physical Exam Constitutional: WD/WN, vitals as above alert and conversive Respiratory: normal respiratory effort, lungs clear to auscultation Cardiovascular: RRR, no murmur, no edema no pain in legs, peripheral pulses intact Gastrointestinal (Abdomen): Inspection/Auscultation: + abdomen distended and + abdominal surgical incision Percussion/Palpation: + guarding and + abdomen rigid surgical incision site had some drainage, no bruising, swelling, or erythema Results & Data Results & Data Vital Signs (Past 12 Hours) Vital Signs Temp Pulse Pulse Resp BP Pulse Ox Pulse Ox 05/01/24 03:32 37.2 C 128 H 24 152/91 H 93 05/01/24 00:56 95 05/01/24 00:16 100 H 04/30/24 22:50 37.4 C 99 H 16 145/85 H 95 04/30/24 21:38 36.9 C 95 H 18 169/84 H 95 04/30/24 19:42 36.7 C 89 14 150/89 H 97 04/30/24 19:34 87 137/79 04/30/24 19:30 O2 Del Method O2 Del Method O2 Flow Rate O2 Flow Rate 05/01/24 03:32 Nasal Cannula 2.0 05/01/24 00:56 Nasal Cannula 2 05/01/24 00:16 04/30/24 22:50 Nasal Cannula 2.0 04/30/24 21:38 Nasal Cannula 2 04/30/24 19:42 Nasal Cannula 2.0 04/30/24 19:34 04/30/24 19:30 Nasal Cannula 2 Laboratory Results Abnormal lab results 05/01/24 Range/Units 07:16 WBC 11.87 H (4.8-10.8) K/ul RBC 4.47 L (4.70-6.10) M/uL RDW Std Deviation 47.0 H (36.4-46.3) fL Neut # (Auto) 10.31 H (1.40-6.50) K/uL Lymph # (Auto) 0.67 L (1.20-3.40) K/uL [place] # (Auto) 0.77 H (0.11-0.59) K/uL BUN/Creatinine Ratio 25.8 H (10-20) Glucose 128 H (70-99(Fasting)) mg/dl Calcium 8.3 L (8.6-10.3) mg/dl Total Bilirubin 1.4 H (0.2-1.0) mg/dl AST 95 H (13-39) U/L ALT 88 H (7-52) U/L Resident Activity Tracking Resident Involvement: Resident Care Provided Care Provided: Adult Hospital Medicine (2) Cholelithiasis NOS Biliary obstruction: without biliary obstruction Cholecystitis acuity: acute Cholecystitis presence: with cholecystitis Cholelithiasis location: gallbladder Qualified Code(s): K80.00 - Calculus of gallbladder with acute cholecystitis without obstruction (3) Hypertension Hypertension type: unspecified Qualified Code(s): I10 - Essential (primary) hypertension
[2024-05-01 07:57] LABS: Basophils # (auto) 0.03 K/uL (0.00-0.20); Basophils % (auto) 0.3 %; Hemoglobin 14.3 g/dl (14.0-18.0); Immature Granulocytes # (auto) 0.09 K/uL (0.01-0.20); Immature Granulocytes % (auto) 0.8 %; Lymphocytes # (auto) 0.67 K/uL (1.20-3.40); Lymphocytes % (auto) 5.6 %; Mean Platelet Volume 9.8 fL (9.4-12.4); Monocytes # (auto) 0.77 K/uL (0.11-0.59); Monocytes % (auto) 6.5 %; Neutrophils # (auto) 10.31 K/uL (1.40-6.50); Neutrophils % (auto) 86.8 %; Platelet Count 137 K/uL (130-400); RDW Coefficient of Variation 13.5 % (11.5-14.5); Red Blood Count 4.47 M/uL (4.70-6.10); White Blood Count 11.87 K/ul (4.8-10.8)
[2024-05-01 08:17] LABS: Albumin Globulin Ratio 1.1 (0.9-2); Albumin Level 3.4 gm/dl (3.4-5.0); BUN Creatinine Ratio 25.8 (10-20); Bilirubin,Total 1.4 mg/dl (0.2-1.0); Calcium 8.3 mg/dl (8.6-10.3); Creatinine Clr Calc Pharmacy 94.4 ml/min; Globulin 3.1 gm/dl (2.5-4.0); Total Protein 6.5 gm/dl (6.0-8.3)
--- NOTE | 2024-05-01 10:33 | Surgery Progress Note ---
Date of Service May 01, 2024 Assessment & Plan (1) Acute cholecystitis: Plan: POD#1 laparoscopic cholecystectomy WBC 11.8, Hbg 14 Having post op discomfort, will make tylenol standing and increase his prn dilaudid dosing On clears which he wants to stay on, but left an advance diet as tolerated order in place as patient feels better he may eat Continue IV abx and ELIZABETH drain Pulm toilet and activity encouraged as above. "feeling a little rough" which doesn't surprise me. labs ok. ELIZABETH serous. not ready for d/c yet. possibly tomorrow Admission and Anticipated Discharge Date Admission Date: April 29, 2024 Subjective Patient reporting + abdominal pain. On liquids but does not want to advance further at this time. Had a coughing fit this AM that aggravated his abdominal pain. Physical Exam Physical Exam: awake, appears in pain Gastrointestinal (Abdomen): Inspection/Auscultation: + abdomen distended and + abdominal surgical incision (surgical dressings c/d/i ) Percussion/Palpation: + abdomen tender (generalized discomfort to palpation ) ELIZABETH serosang. 90cc Results & Data Vital Signs (Past 12 Hours) Vital Signs Temp Pulse Pulse Resp BP Pulse Ox Pulse Ox 05/01/24 07:17 128 H 05/01/24 07:14 98.6 F 107 H 20 119/73 95 05/01/24 03:32 99.0 F 128 H 24 152/91 H 93 05/01/24 00:56 95 05/01/24 00:16 100 H 04/30/24 22:50 99.3 F 99 H 16 145/85 H 95 O2 Del Method O2 Del Method O2 Flow Rate O2 Flow Rate 05/01/24 07:17 05/01/24 07:14 Nasal Cannula 2 05/01/24 03:32 Nasal Cannula 2.0 05/01/24 00:56 Nasal Cannula 2 05/01/24 00:16 04/30/24 22:50 Nasal Cannula 2.0 PG Care Time/CCT Total # of Minutes Spent Total Time Spent with Patient: Total time spent is greater than 50% in coordination of care (as documented) at patient's floor/unit and/or counseling patient: Coding Level of Care Code 93037 Post Operative Follow-Up Diagnoses Acute cholecystitis K81.0
[2024-05-01] MEDS: ACETAMINOPHEN 1,000 MG/100 ML VIAL IV SCH (11:43)
[2024-05-01] MEDS: oxyCODONE HCL IR 5 MG TAB (IMMEDIATE RELEASE) PO PRN (11:43)
[2024-05-01] MEDS ORDERED: HYDROmorphone INJ 0.5 MG/0.5 ML SYR IV PRN (12:00)
--- NOTE | 2024-05-01 13:00 | Billing Data ---
Date of Service May 01, 2024 Coding Level of Care Code 68667 SUB INP/OBS CARE
[2024-05-01] MEDS: D5W AND LACTATED RINGERS 1,000 ML IV SCH (14:21)
[2024-05-01] MEDS: COUGH DROP (SUGAR FREE) LOZ 24 LOZ/1 BOX BUCCAL ONE (18:27)
--- NOTE | 2024-05-02 06:38 | Hospitalist Progress Note ---
Date of Service May 02, 2024 Assessment & Plan (1) Acute cholecystitis: Plan: - Patient presented to ED with symptoms of right lower abdominal pain and vomiting - CT and MRCP show 3.2-3.5cm calculus near neck of the gallbladder - s/p cholecystectomy 04/30, surgeon saw extremely infected and inflamed gallbladder - distended abdomen likely due to gas build up and lack of bowel movements vs. ileus - Surgery mentioned ileus and will be getting a KUB - KUB: dilated air-filled loops of small and large bowel suggestive of postoperative ileus - Re-started clear liquids diet - Lab values: Leukocytosis downtrending, WBC - 12.76 -> 11.87 -> 9.31 - Blood cultures came back positive for E.Coli and Klebsiella, mullen-sensitive - Switch Zosyn to Unasyn (2) Cholelithiasis NOS: Plan: - as per plan above Admission and Anticipated Discharge Date Admission Date: April 29, 2024 Supervising Physician Co-Signing Physician Notes I personally examined the patient and verified all medellin points of history and exam, discussed case, and agree with decision making with Dr Jung and Garrett Burch MS2 Abdominal distention. No bowel movements. Vitals noted, in general he is awake and alert pleasant no distress. HEENT normocephalic atraumatic mucous membranes moist. Breathing unlabored no accessory muscle use good effort. Skin without rashes pallor or icterus. Neuro without focal deficits. T-spine paraspinal muscles high tone, decreased range of motioninhibitory pressure/direct myofascial "rib raising" donepatient tolerated well Cholecystitis with sepsis present on admission now postop day 2continue IV antibiotics (with cultures can narrow to Unasyn), continue pain control, restarted IV fluids, continue to follow. ileusrib raising done, continue supportive care. Encouraged ambulation.. Surgery assistance greatly appreciated. DVT proph - SCDs Gregory Connor is second day s/p cholecystectomy. He still reports abdominal pain and mentions that he feels really gassy. He does mention that he has been asking for pain meds more often. He has not had any bowel movements. He and the nurse also endorse that his abdomen seems more distended than yesterday. Currently on liquids but does not want to advance further at this time. Had a coughing fit this AM that aggravated his abdominal pain. He does not endorse any SOB. Does not mention any chest pain. Review of Systems Review of Systems: as per HPI Gastrointestinal: + abdominal pain, + bloating and + nause a Physical Exam Constitutional: WD/WN, vitals as above alert and conversive Respiratory: normal respiratory effort, lungs clear to auscultation Cardiovascular: RRR, no murmur, no edema Gastrointestinal (Abdomen): Inspection/Auscultation: + abdomen distended, normal bowel sounds and + abdominal surgical incision Percussion/Palpation: + abdomen rigid no drainage from surgical incision sites, no signs of erythema or ecchymosis Results & Data Results & Data Vital Signs (Past 12 Hours) Vital Signs Temp Pulse Resp BP Pulse Ox Pulse Ox O2 Del Method 05/02/24 00:00 94 05/01/24 23:58 36.9 C 92 H 18 141/87 H 90 Nasal Cannula 05/01/24 22:34 Room Air 05/01/24 20:00 36.8 C O2 Del Method O2 Flow Rate O2 Flow Rate 05/02/24 00:00 Nasal Cannula 2 05/01/24 23:58 2 05/01/24 22:34 05/01/24 20:00 (2) Cholelithiasis NOS Biliary obstruction: without biliary obstruction Cholecystitis acuity: acute Cholecystitis presence: with cholecystitis Cholelithiasis location: gallbladder Qualified Code(s): K80.00 - Calculus of gallbladder with acute cholecystitis without obstruction
[2024-05-02 07:02] LABS: Basophils # (auto) 0.02 K/uL (0.00-0.20); Basophils % (auto) 0.2 %; Eosinophils % (auto) 1.1 %; Hematocrit (blood only) 38.6 % (42.0-52.0); Hemoglobin 12.9 g/dl (14.0-18.0); Immature Granulocytes # (auto) 0.03 K/uL (0.01-0.20); Immature Granulocytes % (auto) 0.3 %; Lymphocytes % (auto) 7.5 %; Mean Corpuscular Hemoglobin 31.9 pg (25.0-34.0); Mean Corpuscular Hgb Conc 33.4 g/dL (32.0-36.0); Mean Corpuscular Volume 95.5 fL (80.0-100.0); Mean Platelet Volume 9.6 fL (9.4-12.4); Monocytes # (auto) 0.73 K/uL (0.11-0.59); Monocytes % (auto) 7.8 %; Neutrophils # (auto) 7.73 K/uL (1.40-6.50); Neutrophils % (auto) 83.1 %; Platelet Count 145 K/uL (130-400); RDW Coefficient of Variation 13.5 % (11.5-14.5); RDW Standard Deviation 48.2 fL (36.4-46.3); Red Blood Count 4.04 M/uL (4.70-6.10); White Blood Count 9.31 K/ul (4.8-10.8)
[2024-05-02 07:16] LABS: Calcium 8.4 mg/dl (8.6-10.3); Creatinine Clr Calc Pharmacy 122.4 ml/min; Potassium 3.8 mmol/L (3.5-5.1)
--- NOTE | 2024-05-02 10:01 | Surgery Progress Note ---
Date of Service May 02, 2024 Assessment & Plan (1) Hx laparoscopic cholecystectomy: Plan: Likely has a postoperative ileus which is not unexpected considering the severity of his cholecystitis We will decrease his diet to ice chips and obtain a KUB. We have offered an NG tube which she has declined at this time. We will need to continue IV fluids and supportive care. Admission and Anticipated Discharge Date Admission Date: April 29, 2024 Subjective Patient seen. Abdominal pain overall improved however he is markedly distended with nausea. This is much worse than yesterday. Physical Exam Physical Exam: Alert. No acute distress His abdomen is markedly distended which is a change from yesterday. Incisions look good Results & Data Vital Signs (Past 12 Hours) Vital Signs Temp Pulse Resp BP Pulse Ox Pulse Ox O2 Del Method 05/02/24 08:00 36.7 C 87 20 129/74 97 Nasal Cannula 05/02/24 00:00 94 05/01/24 23:58 36.9 C 92 H 18 141/87 H 90 Nasal Cannula 05/01/24 22:34 Room Air O2 Del Method O2 Flow Rate O2 Flow Rate 05/02/24 08:00 2 05/02/24 00:00 Nasal Cannula 2 05/01/24 23:58 2 05/01/24 22:34 PG Care Time/CCT Total # of Minutes Spent Total Time Spent with Patient: Total time spent is greater than 50% in coordination of care (as documented) at patient's floor/unit and/or counseling patient: Coding Level of Care Code 36691 Post Operative Follow-Up Diagnoses Hx laparoscopic cholecystectomy Z90.49
--- NOTE | 2024-05-02 11:13 | XRay Report ---
KUB HISTORY: Acute abdominal pain eval bowel/gas pattern s/p lap thalia COMPARISON: CT 04/29/2024 FINDINGS: Surgical drain projects over the right lateral abdomen. Cholecystectomy. Moderate fecal ret ention in the right hemicolon. Midline skin ruchi. Air filled dilated loops of large and small debbie l. Small pleural effusions with bibasilar opacities. No renal calculi. No ureteral calculi. No pneumo peritoneum or pneumatosis. No fracture. IMPRESSION: Cholecystectomy with dilated air-filled loops of large and small bowel suggestive of postoperative il eus. Follow-up recommended. ACT 112: Negative or not required by law. The above report was generated using voice recognition software. It may contain grammatical, syntax o r spelling errors. Electronically signed by: Shahid Carter M.D. 05/02/2024 11:12 AM
[2024-05-02] MEDS: AMPICILLIN/SULBACTAM SOD 3,000 MG/100 ML BAG IV SCH (12:10)
--- NOTE | 2024-05-02 16:42 | Billing Data ---
Date of Service May 02, 2024 Coding Level of Care Code 91746 SUB INP/OBS CARE
[2024-05-03] MEDS: diphenhydrAMINE 2%/ZINC 0.1% CREAM 28.4GM TUBE EXT PRN (05:06)
[2024-05-03 05:46] LABS: Basophils # (auto) 0.02 K/uL (0.00-0.20); Basophils % (auto) 0.2 %; Eosinophils # (auto) 0.13 K/uL (0.00-0.50); Eosinophils % (auto) 1.5 %; Hematocrit (blood only) 37.7 % (42.0-52.0); Immature Granulocytes # (auto) 0.03 K/uL (0.01-0.20); Immature Granulocytes % (auto) 0.4 %; Lymphocytes # (auto) 0.67 K/uL (1.20-3.40); Lymphocytes % (auto) 7.9 %; Mean Corpuscular Hemoglobin 32.1 pg (25.0-34.0); Mean Corpuscular Hgb Conc 34.5 g/dL (32.0-36.0); Mean Corpuscular Volume 93.1 fL (80.0-100.0); Mean Platelet Volume 9.7 fL (9.4-12.4); Monocytes # (auto) 0.72 K/uL (0.11-0.59); Monocytes % (auto) 8.5 %; Neutrophils # (auto) 6.88 K/uL (1.40-6.50); Neutrophils % (auto) 81.5 %; Platelet Count 154 K/uL (130-400); RDW Coefficient of Variation 13.2 % (11.5-14.5); RDW Standard Deviation 45.4 fL (36.4-46.3); Red Blood Count 4.05 M/uL (4.70-6.10); White Blood Count 8.45 K/ul (4.8-10.8)
[2024-05-03 06:10] LABS: Albumin Level 3.2 gm/dl (3.4-5.0); BUN Creatinine Ratio 33.9 (10-20); Bilirubin,Total 0.8 mg/dl (0.2-1.0); Calcium 8.6 mg/dl (8.6-10.3); Creatinine Clr Calc Pharmacy 143.2 ml/min; Globulin 3.3 gm/dl (2.5-4.0); Potassium 3.3 mmol/L (3.5-5.1); Total Protein 6.5 gm/dl (6.0-8.3)
--- NOTE | 2024-05-03 06:56 | Hospitalist Progress Note ---
Date of Service May 03, 2024 Assessment & Plan (1) Acute cholecystitis: Plan: - Patient presented to ED with symptoms of right lower abdominal pain and vomiting - CT and MRCP show 3.2-3.5cm calculus near neck of the gallbladder - s/p cholecystectomy 04/30, surgeon saw extremely infected and inflamed gallbladder - distended abdomen likely due to gas build up and lack of bowel movements vs. ileus - Surgery mentioned ileus and will be getting a KUB - KUB: dilated air-filled loops of small and large bowel suggestive of postoperative ileus - Re-started clear liquids diet - Lab values: Leukocytosis downtrending, WBC - 12.76 -> 11.87 -> 9.31 - Blood cultures came back positive for E.Coli and Klebsiella, mullen-sensitive - Switch Zosyn to Unasyn (2) Cholelithiasis NOS: Plan: - as per plan above (3) VERONICA (acute kidney injury): Plan: - BUN/Cret uptrending - 21.6 -> 25.8 -> 31.8 - Cr, 0.69 <-- 0.89 - Likely due to volume depletion from N/V and sepsis presentation - Continue current IV fluid resuscitation (4) Rash of back: Plan: Will look at it this morning Admission and Anticipated Discharge Date Admission Date: April 29, 2024 Gregory Connor is second day s/p cholecystectomy. He still reports abdominal pain and mentions that he feels really gassy. He does mention that he has been asking for pain meds more often. He has not had any bowel movements. He and the nurse also endorse that his abdomen seems more distended than yesterday. Currently on liquids but does not want to advance further at this time. Had a coughing fit this AM that aggravated his abdominal pain. He does not endorse any SOB. Does not mention any chest pain. Review of Systems Constitutional: + fatigue; no fever and no chills Cardiovascular: no chest pain and no palpitations Results & Data Results & Data Vital Signs (Past 12 Hours) Vital Signs Temp Pulse Resp BP Pulse Ox O2 Del Method 05/02/24 22:50 36.8 C 97 H 18 165/97 H 91 Room Air (2) Cholelithiasis NOS Biliary obstruction: without biliary obstruction Cholecystitis acuity: acute Cholecystitis presence: with cholecystitis Cholelithiasis location: gallbladder Qualified Code(s): K80.00 - Calculus of gallbladder with acute cholecystitis without obstruction
--- NOTE | 2024-05-03 10:25 | Surgery Progress Note ---
Date of Service May 03, 2024 Assessment & Plan (1) Hx laparoscopic cholecystectomy: Plan: POD#3 laparoscopic cholecystectomy WBC 8.4, Hbg 13, Vitals stable KUB obtained yesterday for abdominal distention/pain/nausea which revealed post op ileus He has since started passing some gas and loose stool. feels mildly better, but remains with distention and pain He was backed down to NPO with ice yesterday and since advanced to clears Will see how he fairs, may need to consider resuming IVF Continue IV abx and ELIZABETH drain for now- remains serosang as above. feeling better each day. +flatus. small bm abd still distended but improving slowly advance diet. not ready for d/c yet Admission and Anticipated Discharge Date Admission Date: April 29, 2024 Subjective Patient reports feeling maybe mildly better. He has started to pass some loose stools with gas. No nausea at this time, but remains with abdominal pain and distention. Physical Exam Physical Exam: awake lying in bed Respiratory: on room air Gastrointestinal (Abdomen): Inspection/Auscultation: + abdomen distended and + abdominal surgical drain present (serosang, 140cc documented) Percussion/Palpation: + abdomen tender Results & Data Vital Signs (Past 12 Hours) Vital Signs Temp Pulse Resp BP Pulse Ox O2 Del Method 05/03/24 07:52 98.1 F 99 H 16 151/82 H 94 Room Air 05/02/24 22:50 98.2 F 97 H 18 165/97 H 91 Room Air PG Care Time/CCT Total # of Minutes Spent Total Time Spent with Patient: Total time spent is greater than 50% in coordination of care (as documented) at patient's floor/unit and/or counseling patient: Coding Level of Care Code 97738 Post Operative Follow-Up Diagnoses Hx laparoscopic cholecystectomy Z90.49
[2024-05-03] MEDS: SODIUM CHLORIDE 0.9% 1,000 ML IV SCH (10:59)
[2024-05-03] MEDS ORDERED: METOCLOPRAMIDE HCL INJ 5 MG/ML 2 ML VIAL IV SCH (16:00)
--- NOTE | 2024-05-03 16:18 | Hospitalist Progress Note ---
Date of Service May 03, 2024 Assessment & Plan (1) Acute cholecystitis: Plan: - Patient presented to ED with symptoms of right lower abdominal pain and vomiting - Patients symptoms have steadily been improving - CT and MRCP show 3.2-3.5cm calculus near neck of the gallbladder - s/p cholecystectomy 04/30, surgeon saw extremely infected and inflamed gallbladder - Lab values: Leukocytosis downtrending, WBC - 12.76 -> 11.87 -> 9.31 - Blood cultures came back for E.Coli and Klebsiella -Currently on Unasyn, switch to Amoxi-clav when tolerated (2) Cholelithiasis NOS: Plan: - s/p cholecystectomy (3) Ileus, postoperative: Plan: - distended abdomen likely due to no bowel movements and gas build up - patient declining any nasalgastric tube for decompression - Surgery following for post-op ileus - Advance diet as tolerated - Replace moderate pain opioid pain medication w/ Toradol, 15 mg, IV, q6hrs - Try metoclopramide, 10 mg, IV, q6HWA (while awake) (4) VERONICA (acute kidney injury): Plan: - BUN/Cret uptrending - 31.8 -> 33.9 - Cret downtrending - 0.69 -> 0.59 - Likely due to volume depletion from N/V and sepsis presentation - Continue current IV fluid resuscitation (5) Delirium: Plan: - Patient is confused today about day and care team, family also endorses more confusion from patient - Encourage ambulation - Switch dilaudid to toradol to reduce potential medication toxicity (6) Rash of back: Plan: - macular erythematous rash of tailbone area - Zinc acetate/diphenhydramine, 0.1% cream, 1 application external, daily Admission and Anticipated Discharge Date Admission Date: April 29, 2024 Supervising Physician Co-Signing Physician Notes I personally examined the patient and verified all med[place]in points of history and exam, discussed case, and agree with decision making with Dr Jung and Garrett Burch MS2 was more confused. Now seems to be more lucid again. Updated patient and to the best my ability. Appreciate surgical input. Vitals noted, in general he is awake and alert currently oriented to person place and situation. No distress. Fatigued appearing. HEENT normocephalic atraumatic mucous membranes moist. Breathing unlabored no accessory muscle use good effort. Skin without rashes pallor or icterus. Cholecystitis with sepsis present on admission now postop day 3continue Unasyn, continue pain control, but transition to Toradol instead of narcotics to help with delirium/metabolic encephalopathy as well as not worsen ileus. ileusrib raising done, continue supportive care. Encouraged ambulation yet again. Surgery assistance greatly appreciated. DVT proph - SCDs, add lovenox since he's refusing to ambulate Gregory Connor is third day s/p cholecystectomy. He still reports abdominal pain, but mentions that it feels better than yesterday. He says he has not asked for as m any pain meds. He still has not had any bowel movements. He mentions walking to the bathroom, but not has not ambulated much. He also mentions that he has a rash on his back. He says he had rashes like this before and they have been from the hospital bed and they started to blister. He endorses that the rash is all over this back and a little itchy, but the nurses got him extra pillows and blankets which has made it feel better. He does not seem to remember what day it is or remember who the care team is. He does not endorse any SOB. Does not mention any chest pain. Review of Systems Review of Systems: as per HPI Constitutional: + fatigue; no fever and no chills Respiratory: no dyspnea Cardiovascular: no chest pain and no palpitations Gastrointestinal: + abdominal pain and + bloating Integumentary: + rash Physical Exam Constitutional: WD/WN, vitals as above Respiratory: normal respiratory effort, lungs clear to auscultation Auscultation: no crackles and no wheezes Cardiovascular: RRR, no murmur, no edema Extremities: normal capillary refill; no calf tenderness and no pedal edema Gastrointestinal (Abdomen): Inspection/Auscultation: + abdomen distended, + abdominal surgical incision and + hypoactive bowel sounds Percussion/Palpation: + abdomen tender and + abdomen rigid Skin: + rash (macular, erythematous rash on pa tient's tailbone area) Psychiatric: A+Ox3, euthymic affect Results & Data Results & Data Vital Signs (Past 12 Hours) Vital Signs Temp Pulse Resp BP Pulse Ox O2 Del Method 05/03/24 07:52 36.7 C 99 H 16 151/82 H 94 Room Air 05/02/24 22:50 36.8 C 97 H 18 165/97 H 91 Room Air Laboratory Results Laboratory Results - last 24 hr 05/03/24 05:28 WBC 8.45 RBC 4.05 L Hgb 13.0 L Hct 37.7 L MCV 93.1 MCH 32.1 MCHC 34.5 RDW Std Deviation 45.4 RDW Coeff of Ham 13.2 Plt Count 154 MPV 9.7 Immature Gran % (Auto) 0.4 Neut % (Auto) 81.5 Lymph % (Auto) 7.9 [place] % (Auto) 8.5 Eos % (Auto) 1.5 Baso % (Auto) 0.2 Neut # (Auto) 6.88 H Lymph # (Auto) 0.67 L [place] # (Auto) 0.72 H Eos # (Auto) 0.13 Baso # (Auto) 0.02 Immature Gran # (Auto) 0.03 Sodium 134 L Potassium 3.3 L Chloride 96 L Carbon Dioxide 28 Anion Gap 10 BUN 20 Creatinine 0.59 L Est Cr Clr Drug Dosing 143.2 eGFR 105.68 BUN/Creatinine Ratio 33.9 H Glucose 114 H Calcium 8.6 Total Bilirubin 0.8 D AST 36 ALT 65 H Alkaline Phosphatase 103 Total Protein 6.5 Albumin 3.2 L Globulin 3.3 Albumin/Globulin Ratio 1.0 (2) Cholelithiasis NOS Biliary obstruction: without biliary obstruction Cholecystitis acuity: acute Cholecystitis presence: with cholecystitis Cholelithiasis location: gallbladder Qualified Code(s): K80.00 - Calculus of gallbladder with acute cholecystitis without obstruction
[2024-05-03] MEDS: KETOROLAC TROMETHAMINE 15 MG/ML VIAL IV PRN (16:50)
--- NOTE | 2024-05-03 17:09 | Billing Data ---
Date of Service May 03, 2024 Coding Level of Care Code 42631 SUB INP/OBS CARE
[2024-05-03] MEDS: METOCLOPRAMIDE HCL INJ 5 MG/ML 2 ML VIAL IV SCH (17:19)
[2024-05-03] MEDS: POTASSIUM CHLORIDE PWD 20 MEQ PACK PO SCH (20:22)
[2024-05-04 07:13] VITALS: TEMP 98.1
[2024-05-04 07:14] LABS: Hematocrit (blood only) 36.9 % (42.0-52.0); Hemoglobin 12.5 g/dl (14.0-18.0); Mean Corpuscular Hemoglobin 31.4 pg (25.0-34.0); Mean Corpuscular Hgb Conc 33.9 g/dL (32.0-36.0); Mean Corpuscular Volume 92.7 fL (80.0-100.0); Mean Platelet Volume 9.6 fL (9.4-12.4); Platelet Count 166 K/uL (130-400); RDW Coefficient of Variation 13.2 % (11.5-14.5); Red Blood Count 3.98 M/uL (4.70-6.10); White Blood Count 6.17 K/ul (4.8-10.8)
[2024-05-04] MEDS: SODIUM CHLORIDE 0.9% 500 ML IV SCH (08:28)
[2024-05-04] MEDS: ENOXAPARIN INJ 40 MG/0.4 ML SYR SQ SCH (08:50)
[2024-05-04 09:44] LABS: Albumin Globulin Ratio 1.1 (0.9-2); Albumin Level 3.3 gm/dl (3.4-5.0); Bilirubin,Total 0.8 mg/dl (0.2-1.0); Calcium 8.5 mg/dl (8.6-10.3); Creatinine Clr Calc Pharmacy 143.2 ml/min; Globulin 2.9 gm/dl (2.5-4.0); Potassium 3.2 mmol/L (3.5-5.1); Total Protein 6.2 gm/dl (6.0-8.3)
--- NOTE | 2024-05-04 09:47 | Surgery Progress Note ---
Date of Service May 04, 2024 Assessment & Plan (1) Hx laparoscopic cholecystectomy: Plan: Doing well. Will advance to low residue diet. Will remove ELIZABETH drain If he tolerates diet I would be okay with him going home later today Admission and Anticipated Discharge Date Admission Date: April 29, 2024 Subjective Patient seen. Feeling better. He would like to go home today. He is passing loose stool and gas. Tolerating clear liquids Physical Exam Physical Exam: Alert feeling well Abdomen soft. Much less distended today ELIZABETH serous Results & Data Vital Signs (Past 12 Hours) Vital Signs Temp Pulse Resp BP Pulse Ox O2 Del Method 05/04/24 07:12 36.7 C 79 18 164/91 H 93 Room Air 05/03/24 22:42 36.9 C 90 17 168/87 H 92 Room Air PG Care Time/CCT Total # of Minutes Spent Total Time Spent with Patient: Total time spent is greater than 50% in coordination of care (as documented) at patient's floor/unit and/or counseling patient: Coding Level of Care Code 33452 Post Operative Follow-Up Diagnoses Hx laparoscopic cholecystectomy Z90.49
--- NOTE | 2024-05-04 10:42 | Hospitalist Progress Note ---
Date of Service May 04, 2024 Assessment & Plan (1) Acute cholecystitis: Plan: - Patient presented to ED with symptoms of right lower abdominal pain and vomiting - Patients symptoms have steadily been improving - CT and MRCP show 3.2-3.5cm calculus near neck of the gallbladder - s/p cholecystectomy 04/30, surgeon saw extremely infected and inflamed gallbladder - Lab values: Leukocytosis downtrending, WBC - 12.76 -> 11.87 -> 9.31 - Blood cultures came back for E.Coli and Klebsiella -Switch to Amoxi-clav (2) Cholelithiasis NOS: Plan: - as per plan above (3) Ileus, postoperative: Plan: - distended abdomen likely due to no bowel movements and gas build up - Surgery following for post-op ileus - Advance diet as tolerated - Continue metoclopramide (4) VERONICA (acute kidney injury): Plan: - BUN/Cret downtrending 33.9 -> 22.03 - Cret downtrending - 0.69 -> 0.59 - Likely due to volume depletion from N/V and sepsis presentation - Continue oral fluid resuscitation (5) Delirium: Plan: - Patient is less confused today, but still mixing up days - Encourage ambulation and advancing diet (6) Rash of back: Plan: - macular erythematous rash of tailbone area - Continue Zinc acetate/diphenhydramine, 0.1% cream, 1 application external, daily Admission and Anticipated Discharge Date Admission Date: April 29, 2024 Gregory Connor is feeling significantly better today. He endorses less abdominal pain and mentions asking for pain medication less often. He also has been sitting up in the chair more often. He mentions that he hasn't had any bowel movements yet, but has been passing more gas. Currently still on fluid only diet. He says the cream has been helping with the rash and its itchiness. He says he had to apply it atleast three times to feel relief. He said he felt less confused than yesterday, but still mentions confusing the date with the nurse. No fevers, chills, chest pain, or SOB. Review of Systems Review of Systems: as per HPI Physical Exam Constitutional: WD/WN, vitals as above Respiratory: normal respiratory effort, lungs clear to auscultation Cardiovascular: RRR, no murmur, no edema Gastrointestinal (Abdomen): Inspection/Auscultation: + abdomen distended, normal bowel sounds and + abdominal surgical incision less distension then previous days Skin: + rash macular erythematous rash in tailbone area Results & Data Results & Data Vital Signs (Past 12 Hours) Vital Signs Temp Pulse Resp BP Pulse Ox O2 Del Method 05/04/24 07:12 36.7 C 79 18 164/91 H 93 Room Air 05/03/24 22:42 36.9 C 90 17 168/87 H 92 Room Air (2) Cholelithiasis NOS Biliary obstruction: without biliary obstruction Cholecystitis acuity: acute Cholecystitis presence: with cholecystitis Cholelithiasis location: gallbladder Qualified Code(s): K80.00 - Calculus of gallbladder with acute cholecystitis without obstruction
[2024-05-04 11:11] VITALS: PULSE 84; RESP 20; O2SAT 94
--- NOTE | 2024-05-04 12:09 | Discharge Summary ---
Date of Service May 04, 2024 Admission HPI Per Admitting Provider The patient is a 68-year-old male with a past medical history including colon cancer status post resection in [place] 2 years ago. He presents to the emergency department with the acute development and worsening of severe abdominal pain, nausea and vomiting over the past [address] scan of the abdomen and pelvis in the ED was positive for severe acute cholecystitis, with a 3.5 cm stone in the gallbladder neck. There was also moderate to severe fecal loading. Admission Exam (Per Admitting) Constitutional The patient is awake, alert and oriented 3, well developed and well nourished, normocephalic and atraumatic, lying in bed and in no acute distress. HEENT--PERRL, EOMI, mucous membranes and oropharynx mildly dry. Neck--supple. No JVD. No bruits. Thyroid normal, trachea midline, no adenopathy. Heart--normal S1 and S2. No murmurs, rubs or gallops. Lungs--clear bilaterally, no respiratory distress, no accessory muscle use. Abdomen--normal bowel sounds and soft. Nontender after administration of IV morphine. Nondistended Extremities--no cyanosis or clubbing. No edema. Dermatologic--normal skin turgor, normal color, no abnormal lymph nodes, no rash. Neurologic--cranial nerves II through XII grossly intact. Rheumatologic--normal range of motion. Psychiatric--normal affect. Discharge Data Consultations 04/29/24 22:11 Consult General Surgery Routine 04/29/24 22:13 ED Decision to Admit Stat Procedures Performed Operation Date: 04/30/24 11:25 Actual Procedures p Laparoscopic Cholecystectomy,(Not Applicable) - Alcides Solorzano DO s Repair of Incisional Hernia(Not Applicable) - Alcides Solorzano, DO Hospital Course (1) Acute cholecystitis: - Patient presented to ED with symptoms of right lower abdominal pain and vomiting - Patients symptoms have steadily been improving and has currently been on fluid-only diet - CT and MRCP show 3.2-3.5cm calculus near neck of the gallbladder - s/p cholecystectomy 04/30, surgeon saw extremely infected and inflamed gallbladder - Lab values: Leukocytosis downtrending, WBC - 12.76 -> 11.87 -> 9.31 - Gallbladder fluid cultures came back for E.Coli and Klebsiella - Was on zosyn -> unasyn, already completed five-day course of antibiotic during inpatient stay and will not need antibiotics outpatient - Continue advancing diet as tolerated (2) Cholelithiasis NOS: - as per plan above (3) Ileus, postoperative: - Distended abdomen likely due to no bowel movements and gas build up - Patients symptoms have steadily improved w/ decreasing abdominal distention - Surgery followed by post-op ileus - Advance diet as tolerated - 1 day of metoclopramide during hospital stay, discontinued metoclopramide at discharge (4) VERONICA (acute kidney injury): - Patient one day s/p cholecystectomy showed diagnostic values of VERONICA at BUN:Cret of 31, no symptoms of fluid retention or dehydration - Cret downtrending - 0.69 -> 0.59 - Likely due to volume depletion from N/V and sepsis presentation - IV fluid resuscitation given during inpatient stay - Continue oral fluid resuscitation (5) Delirium: - Patient showed symptoms of confusion and incoherence on 05/03, on 05/04 symptoms noted to have improved - Encourage ambulation and advancing diet, - use oxycodone only for severe breakthrough pain not managed by ibuprofen (6) Rash of back: - macular erythematous rash of tailbone area - Continue Zinc acetate/diphenhydramine, 0.1% cream, 1 application external, daily Supervising Physician Co-Signing Physician Notes I personally examined the patient and verified all med[place] points of history and exam, discussed case, and agree with decision making with Dr Jung and Garrett Burch MS2 feeling better belly doing better some liquid BMs really wants to go home. Vitals noted, in general he is awake and alert oriented. No distress. Fatigued appearing. HEENT normocephalic atraumatic mucous membranes moist. Breathing unlabored no accessory muscle use good effort. Abdomen soft mildly distended not very tender no guarding rebound or rigidity. Skin without rashes pallor or icterus. Cholecystitis with sepsis present on admission Ileus improving. Safe/stable for home. Otherwise as above. DVT proph - SCDs, added lovenox once he was refusing to ambulate
[2024-05-04 13:24] VITALS: BP 127/78
--- NOTE | 2024-05-04 16:57 | Billing Data ---
Date of Service May 04, 2024 Coding Level of Care Code 06463 IN/OBS DISCH 30 MIN/LESS
--- NOTE | 2024-05-04 17:00 | Billing Data ---
Date of Service May 04, 2024 Coding Level of Care Code 21694 IN/OBS DISCH 30 MIN/LESS
== END 2024-05-04 14:05 | disposition home or self-care (01) | DRG 854 ==
LOC: ED 18:39 → SUATTDRO 23:18 → 2S 23:18